=== PATIENT | male | born 1940 | race Caucasian/White ===

== ENCOUNTER 2019-12-20 15:58 | Inpatient (IN) | payer OTHER, SELFPAY ==
[2019-12-20] VITALS (10 sets, daily range): BP systolic 103–129; BP diastolic 73–107; PULSE 97–163; RESP 14–28; TEMP 36.3; O2SAT 93–97; BMI 28.8
--- NOTE | 2019-12-20 16:09 | XR_ITS ---
WS: [id number] PORTABLE CHEST HISTORY: Atrial fibrillation COMPARISON: 03/17/2018 Hyperexpanded lungs with no pneumonia. Normal vasculature. No pleural effusion or pneumothorax. Cardiac size: Mildly enlarged cardiac silhouette. Mediastinum/Aorta: Normal mediastinum. No osseous abnormality seen. XR/XR chest 1V portable [id number] IMPRESSION: 1. Chronic emphysema with no pneumonia. 2. Mild cardiomegaly.
--- NOTE | 2019-12-20 16:10 | ED_ITS ---
Entered by Kimberly Bobo, acting as scribe for Celeste Calvo MD Dec 20, 2019 15:58 HPI - Arrhythmia/Palpitations General: Chief Complaint: Arrhythmia/Palpitations Stated Complaint: high hr Time Seen by Provider: 12/20/19 16:09 Source: patient Mode of arrival: ambulatory Limitations: no limitations History of Present Illness: HPI narrative: 79 yo Male presents to ED with complaint of high heart rate. Pt states that he went to the [facility] today to get some prescriptions filled and Dr. Franz told him to come in because his heart rate was too high. Pt states that he does have a history of atrial fibrillation with RVR. Pt states that he take Carvedilol. Pt states that he also takes Xarelto. Pt states that he has never had a heart attack. Pt states that he does have a history of congestive heart failure. Pt states that he had some shortness of breath but took his lasix pill yesterday and got rid of a bunch of fluid, so his shortness of breath got better. Pt states that he has been off of his Carvedilol and other medications for 2 weeks due to running out. complaint: rapid heart beat Onset (ago): day(s) Duration: constant Context: occurred during rest Arrhythmia history: atrial fibrillation and on anti-coagulants Associated symptoms: Reports cough, pre-syncope (light headed and dizzy upon standing) and short of breath; Deny diaphoresis, nausea, syncope or vomiting Review of Systems Const: Denies: fever, chills, change in appetite, night sweats or diaphoresis Eyes: Denies: change in vision ENMT: Denies: throat pain or ear pain Card: Reports: edema (trace), lightheadedness (upon standing) and pre-syncope (light headed and dizzy upon standing); Denies: chest pain or syncope Resp: Reports: shortness of breath (improved with lasix use); Denies: productive cough GI: Denies: abdominal pain, nausea, vomiting, diarrhea or constipation : Denies: flank pain Musc: Denies: back pain Skin/Breast: Denies: rash Neuro: Denies: headache, numbness in extremities or weakness in extremities Psych: Denies: depression Endo: Denies: excessive thirst Thomas/Lymph: Denies: easy bruising PFSH ED PFSH: Statuses (acute, chronic, etc) shown below reflect problem list status as previously entered and may not be historically accurate Medical History (Updated 12/20/19 @ 16:31 by Kimberly Bobo) Atrial fibrillation with RVR COPD (chronic obstructive pulmonary disease) Diabetes Hyperlipidemia Surgical History (Updated 12/20/19 @ 16:31 by Kimberly Bobo) History of tonsillectomy Social History Smoking and tobacco status: former smoker Physical Exam Const: COMMON NORMALS: no apparent distress, oriented x3 and alert GENERAL APPEARANCE: cooperative and well developed; not in distress and not diaphoretic ORIENTATION/CONSCIOUSNESS: Yes awake, Yes oriented to person, Yes oriented to place and Yes oriented to time HENMT: COMMON NORMALS: normocephalic, head/scalp atraumatic, external ears normal, external nose normal and moist oral mucous membranes HEAD & SCALP: normocephalic and atraumatic FACE & SINUS: normal facial exam; no facial tenderness NOSE: external nose normal EXTERNAL EAR: Yes external ears normal MOUTH: oral and palatal mucosa normal, lip normal and tongue normal TEETH & GINGIVA: no abnormal tooth and associated gingiva THROAT: posterior oropharynx normal and uvula midline Eye: COMMON NORMALS: PERRL and EOMs intact bilaterally PUPIL: Yes PERRL Neck/C-Spine: COMMON NORMALS: full ROM, supple and no JVD GENERAL: Yes normal visual inspection and Yes trachea midline CERVICAL SPINE: No cervical spine tenderness Lymph: LYMPHATIC: no lymphadenopathy noted Chest: COMMONS NORMALS: inspection of chest normal Resp: COMMON NORMALS: normal respiratory effort, no use of accessory muscles and clear to auscultation bilaterally EFFORT & INSPECTION: Yes able to speak in complete sentences and Yes symmetric chest movement AUSCULTATION: clear to auscultation bilaterally Cardio: COMMON NORMALS: no JVD, regular rhythm, no gallops, no murmurs and peripheral pulses 2+ throughout; negative for regular rate RATE: abnormal rate and tachycardic RHYTHM: regular rhythm PERIPHERAL PULSES: pulses 2+ throughout GI: COMMON NORMALS: normal to inspection, nondistended, normoactive bowel sounds, soft to palpation and non-tender PALPATION: Yes soft Back/Pelvis: COMMON NORMALS: thoracic and lumbar spine normal to inspection and thoraco-lumbar ROM normal Extremity: COMMON NORMALS: normal to inspection, full ROM and normal capillary refill GENERAL: Yes edema (trace edema to bilateral lower extremities) Neuro: COMMON NORMALS: oriented x3, CN's II-XII intact bilaterally, moves all extremities, no focal motor deficits and no sensory deficits noted SENSORIUM/ORIENTATION: Yes alert, Yes oriented to person, Yes oriented to place and Yes oriented to time Psych: COMMON NORMALS: mental status grossly normal, thought process normal, cooperative, affect normal, speech normal and activity/motor behavior normal SPEECH: Yes normal speech THOUGHT PROCESS: normal thought process Skin: COMMON NORMALS: no rashes or lesions noted and skin turgor normal GENERAL SKIN EXAM: no rashes or lesions noted and turgor normal Course ED course: Patient with high HR and a fib. Unclear when that started but sounds like it may have been for a few weeks. Work up unremarkable - IV cardizem given and titrated until HR came down. He had one episode of hypotension, which was asymptomatic - and responded to IV fluids. He agreed to admission for transition to oral medications and further re-evaluation. Vital Signs: Vital signs: Vital Signs Temperature 97.3 F L 12/20/19 16:00 Pulse Rate 113 H 12/20/19 21:34 Respiratory Rate 16 12/20/19 21:34 Blood Pressure 107/87 12/20/19 21:34 Pulse Oximetry 96 12/20/19 21:34 MDM - Arrhythmia/Palpitations MDM Narrative: Medical decision making narrative: A fib with RVR. History of CHF - patient says he had been out of his meds - including lasix for 2 weeks. he took a lasix yesterday and urinate a very large amount - felt better with decreased shortness of breath after that. He does not appear to be in failure now. Lab Data: Labs: Lab Results 12/20/19 12/20/19 12/20/19 Range/Units 16:30 16:30 16:30 WBC 7.9 (4.0-10.0) 10^3/ uL RBC 4.33 (4.1-5.3) 10^6/u L Hgb 11.3 L (11.7-16.6) g/dL Hct 37.6 L (42.0-52.0) % MCV 86.8 (80-94) fL MCH 26.1 L (28.0-34.0) pg MCHC 30.1 (30.0-36.0) g/dL RDW 19.4 H (12.1-15.1) % Plt Count 210 (130-400) 10^3/c mm MPV 10.3 (7.4-10.4) fL Neut % (Auto) 58.1 % Lymph % (Auto) 26.1 % Taylor % (Auto) 13.1 % Eos % (Auto) 1.6 % Baso % (Auto) 0.8 % Neut # (Auto) 4.6 (1.8-7.7) 10^3/u L Lymph # (Auto) 2.1 (0.8-4.8) 10^3/u L Taylor # (Auto) 1.0 H (0.2-0.9) 10^3/u L Eos # (Auto) 0.1 (0.0-0.8) 10^3/u L Baso # (Auto) 0.1 (0.0-0.1) 10^3/u L Nucleated RBC % (a uto) 0 % Nucleated RBCs # 0.0 /100WBC Sodium 139 (136-145) mmol/L Potassium 4.4 (3.5-5.1) mmol/L Chloride 102 (98-107) mmol/L Carbon Dioxide 23 (22-29) mmol/L Anion Gap 18.4 (5-19) BUN 20 (8-23) mg/dL Creatinine 1.0 (0.7-1.2) mg/dL Glucose 120 H (65-115) mg/dL Calcium 9.9 (8.5-10.5) mg/dL Total Bilirubin 0.4 (0.15-1.2) mg/dL AST 20 (0-40) U/L ALT 18 (0-41) U/L Alkaline Phosphata se 65 (40-130) IU/L Troponin T Baselin e 16 H (0-15) ng/mL Troponin T 120 Min terese (0-15) ng/mL Delta Troponin T (0-10) ABS# Total Protein 7.3 (6.6-8.7) g/dL Albumin 4.8 (3.5-5.2) g/dL Globulin 2.5 (1.3-4.6) g/dL 12/20/19 Range/Units 19:18 WBC (4.0-10.0) 10^3/ uL RBC (4.1-5.3) 10^6/u L Hgb (11.7-16.6) g/dL Hct (42.0-52.0) % MCV (80-94) fL MCH (28.0-34.0) pg MCHC (30.0-36.0) g/dL RDW (12.1-15.1) % Plt Count (130-400) 10^3/c mm MPV (7.4-10.4) fL Neut % (Auto) % Lymph % (Auto) % Taylor % (Auto) % Eos % (Auto) % Baso % (Auto) % Neut # (Auto) (1.8-7.7) 10^3/u L Lymph # (Auto) (0.8-4.8) 10^3/u L Taylor # (Auto) (0.2-0.9) 10^3/u L Eos # (Auto) (0.0-0.8) 10^3/u L Baso # (Auto) (0.0-0.1) 10^3/u L Nucleated RBC % (a uto) % Nucleated RBCs # /100WBC Sodium (136-145) mmol/L Potassium (3.5-5.1) mmol/L Chloride (98-107) mmol/L Carbon Dioxide (22-29) mmol/L Anion Gap (5-19) BUN (8-23) mg/dL Creatinine (0.7-1.2) mg/dL Glucose (65-115) mg/dL Calcium (8.5-10.5) mg/dL Total Bilirubin (0.15-1.2) mg/dL AST (0-40) U/L ALT (0-41) U/L Alkaline Phosphata se (40-130) IU/L Troponin T Baselin e (0-15) ng/mL Troponin T 120 Min terese 15.93 H (0-15) ng/mL Delta Troponin T -0.07 L (0-10) ABS# Total Protein (6.6-8.7) g/dL Albumin (3.5-5.2) g/dL Globulin (1.3-4.6) g/dL Imaging Data^: CXR: Radiologist's impression: [facility] [address] [place] [address] XRay Report Signed Patient: Nahum Armstrong #: [id number] : 2Acct#:[id number] Age/Sex: 79 / MADM Date: 12/20/19 Loc: ERRoom/Bed: Attending Dr: Ordering Provider/Ordering MD: Celeste Calvo MD Date of Service: 12/20/19 Procedure(s): XR chest 1V portable [id number] Accession Number(s): [id number] Report Number: [id number] WS: [id number] PORTABLE CHEST HISTORY: Atrial fibrillation COMPARISON: 03/17/2018 Hyperexpanded lungs with no pneumonia. Normal vasculature. No pleural effusion or pneumothorax. Cardiac size: Mildly enlarged cardiac silhouette. Mediastinum/Aorta: Normal mediastinum. No osseous abnormality seen. XR/XR chest 1V portable [id number] IMPRESSION: 1. Chronic emphysema with no pneumonia. 2. Mild cardiomegaly. Dictated By:Berna Grewal DO Signed By:Berna Grewal DOSigned Date/Time:12/20/19 162 DD/ 1627 EKG Data^: EKG 1: EKG interpretation date: 12/20/19 EKG interpretation time: 16:14 Interpretation: Afib at 164, RBBB, nonspecific rate related ST changes Other EKG comments: Chest X-Ray 12/20/19 16:09 IMPRESSION: 1. Chronic emphysema with no pneumonia. 2. Mild cardiomegaly. Discharge Plan Discharge Admit Provider: Anni Bazzi Coding Level of Care Code ED Balloon Sander for Chg Fwd Exam Problem Focused The documentation recorded by the Jihan streeter Carmen, accurately reflects the service I personally performed and the decisions made by Umesh rendon Kathryn L, MD Dec 20, 2019 15:58
--- NOTE | 2019-12-20 16:10 | ECG_ITS ---
Measurements Intervals [place] Rate: 164 P: NM: 0 QRS: 25 QRSD: 98 T: 77 QT: 261 QTc: 432 ATRIAL FIBRILLATION WITH RAPID VENTRICULAR RESPONSE INCOMPLETE RIGHT BUNDLE BRANCH BLOCK [90+ ms QRS DURATION, TERMINAL R IN V1/V2, + ms S IN I/aVL/V4/V5/V6] NONSPECIFIC ST & T-WAVE ABNORMALITY ABNORMAL RHYTHM ECG Compared to ECG 03/17/2018 16:46:17 Possible ischemia no longer present T-wave abnormality still present Electronically Signed On 12-20-2019 20:56:35 [employer]OPER by Deon Singh M.D. [email or web address]
[2019-12-20] MEDS: sodium chloride 0.9% 500 ML 999 ML IV (16:35)
[2019-12-20 16:44] LABS: Basophils # 0.1 10^3/uL (0.0-0.1); Basophils % 0.8 %; Eosinophils # 0.1 10^3/uL (0.0-0.8); Eosinophils % 1.6 %; Hematocrit 37.6 % (42.0-52.0); Hemoglobin 11.3 g/dL (11.7-16.6); Lymphocytes # 2.1 10^3/uL (0.8-4.8); Lymphocytes % 26.1 %; Mean Corpuscular HGB Conc 30.1 g/dL (30.0-36.0); Mean Corpuscular Hemoglobin 26.1 pg (28.0-34.0); Mean Corpuscular Volume 86.8 fL (80-94); Mean Platelet Volume 10.3 fL (7.4-10.4); Monocytes % 13.1 %; Neutrophils # 4.6 10^3/uL (1.8-7.7); Neutrophils % 58.1 %; Nucleated Red Blood Cells % 0 %; Platelet Count 210 10^3/cmm (130-400); Red Blood Count 4.33 10^6/uL (4.1-5.3); Red Cell Distribution Width 19.4 % (12.1-15.1); White Blood Count 7.9 10^3/uL (4.0-10.0)
[2019-12-20 16:59] LABS: Troponin(5th) Baseline 16 ng/mL (0-15)
[2019-12-20 17:01] LABS: Alanine Aminotransferase 18 U/L (0-41); Albumin Level 4.8 g/dL (3.5-5.2); Alkaline Phosphatase 65 IU/L (40-130); Anion Gap 18.4 (5-19); Aspartate Amino Transferase 20 U/L (0-40); Blood Urea Nitrogen 20 mg/dL (8-23); Calcium 9.9 mg/dL (8.5-10.5); Carbon Dioxide 23 mmol/L (22-29); Chloride 102 mmol/L (98-107); Globulin 2.5 g/dL (1.3-4.6); Glucose 120 mg/dL (65-115); Potassium 4.4 mmol/L (3.5-5.1); Sodium 139 mmol/L (136-145); Total Bilirubin 0.4 mg/dL (0.15-1.2); Total Protein 7.3 g/dL (6.6-8.7)
--- NOTE | 2019-12-20 18:10 | ECG_ITS ---
Measurements Intervals [place] Rate: 123 P: NC: 0 QRS: 22 QRSD: 102 T: 66 QT: 332 QTc: 476 ATRIAL FIBRILLATION WITH RAPID VENTRICULAR RESPONSE INCOMPLETE RIGHT BUNDLE BRANCH BLOCK [90+ ms QRS DURATION, TERMINAL R IN V1/V2, 40+ ms S IN I/aVL/V4/V5/V6] NONSPECIFIC T-WAVE ABNORMALITY ABNORMAL RHYTHM ECG Compared to ECG 03/17/2018 16:46:17 Possible ischemia no longer present T-wave abnormality still present Electronically Signed On 12-20-2019 21:01:26 SUPERVISOR [employer]OR [employer]SEM[employer] by Deon Singh M.D. [id number]
[2019-12-20] MEDS: sodium chloride 0.9% 1,000 ML 999 ML IV (19:27)
[2019-12-20 19:37] LABS: Troponin 5 2HR 15.93 ng/mL (0-15)
[2019-12-20 19:38] LABS: Troponin 5 2HR Delta -0.07 ABS# (0-10)
--- NOTE | 2019-12-20 19:50 | PC.NURSE ---
Assessment was not completed by dayshift nurse, oncoming night nurse completed assessment after shift change.
--- NOTE | 2019-12-20 20:12 | PC.NURSE ---
pt would like food.
--- NOTE | 2019-12-20 20:38 | PC.NURSE ---
Called pharmacy for medications not in pyxis for patient.
[2019-12-20] MEDS: carvedilol 6.25 mg Tablet PO (20:48)
[2019-12-20] MEDS: dilTIAZem 30 mg Tablet PO (20:48)
--- NOTE | 2019-12-20 21:50 | PC.NURSE ---
PATIENT MOVED TO NEW ROOM, NURSE WAITING FOR NEW ROOM NUMBER TO CALL REPORT AGAIN FOR [facility]
--- NOTE | 2019-12-20 22:10 | ECG_ITS ---
Measurements Intervals [place] Rate: 103 P: [place]: 0 QRS: 22 QRSD: 110 T: 70 QT: 365 QTc: 478 ATRIAL FIBRILLATION WITH RAPID VENTRICULAR RESPONSE INCOMPLETE RIGHT BUNDLE BRANCH BLOCK [90+ ms QRS DURATION, TERMINAL R IN V1/V2, 40+ ms S IN I/aVL/V4/V5/V6] NONSPECIFIC T-WAVE ABNORMALITY ABNORMAL RHYTHM ECG Compared to ECG 12/20/2019 18:02:18 No significant changes Electronically Signed On 12-21-2019 20:42:04 FREIGHT RATE SPECIALIST by Ar Ferguson M.D. [email or web address]
--- NOTE | 2019-12-20 22:20 | PC.NURSE ---
EKG done at 2215 and shown to ER doctor
[2019-12-20 22:59] LABS: Troponin 5 6HR 16.98 ng/L (0-15); Troponin 5 6HR Delta 0.98 ng/L (0-12)
--- NOTE | 2019-12-20 23:06 | PC.NURSE ---
HOSPITALIST IN ROOM WITH PATIENT AT THIS TIME
--- NOTE | 2019-12-20 23:10 | P.HP_ITS ---
Providers/Chief Complaint Admitting Physician: Anni Bazzi MD Primary Care Provider: Narciso Franz Chief Complaint: high hr History of Present Illness Nahum Armstrong is a 79 year old male who presented to the emergency room with chief complaint of elevated heart rate. He originally was seen at the [place] [facility] by Dr. Stock. He had run out of his carvedilol, Lasix and benazepril about 2 weeks ago. He has a co-pay with his medications and was simply not able to afford them. To get his benazepril refilled he had to be seen by the doctor again and that is what his appointment today was about. When he was there he was found to have A. fib with RVR and was sent to the emergency room. On arrival here heart rate was in the 160s. He was given some Cardizem and started on a Cardizem drip After a couple of hours with his drip up to 10, his heart rate finally improved to around 100 bpm. He was given some oral some oral Cardizem and an oral carvedilol and able to come off of the drip. He reports increasing shortness of breath, lower extremity edema, nonproductive cough, increasing orthopnea lately. He has noticed that his heart was beating fast but was not really concerned by it. No syncopal episodes or presyncope symptoms otherwise. No reports of chest pain. He has a nonischemic cardiomyopathy with ejection fraction at 25 to 30% on last echocardiogram done here in 2018. He had an arteriogram in 2008 that did not show any flow-limiting obstructions. He himself feels that being without his benazepril and Lasix were probably the biggest problem. He did find a Lasix pill a couple of days ago and had significant urine output and had started to feel better at that point in time. With the significant atrial fibrillation with rapid ventricular response that was not apparent to the patient at presentation and required initiation of IV continuous treatment for rate control, combined with increasing shortness of breath, both related to being out of his medications Lately, he is being admitted to observation status to ensure continued control of cardiac issues and to facilitate arrangement of home medications. Review of Systems Const: Denies: fever or chills Eyes: Denies: change in vision ENMT: Denies: throat pain, oral sores/lesions or nasal congestion Card: Reports: irregular heart rhythm, edema, shortness of breath on exertion and shortness of breath when lying down; Denies: chest pain, lightheadedness, syncope or pre-syncope Resp: Reports: shortness of breath and non-productive cough GI: Denies: abdominal pain, nausea, vomiting, difficulty swallowing, diarrhea, constipation or blood in stool : Reports: urinary hesitancy; Denies: urinary frequency Musc: Reports: extremity pain (Sometimes. No calf pain.); Denies: joint swelling, redness or joint warmth Skin/Breast: Denies: rash or sores Neuro: Reports: other (Walks a little crooked but not new); Denies: headache or numbness in extremities Psych: Reports: anxiety and other (Emotional at times) Endo: Denies: excessive sweating Thomas/Lymph: Denies: easy bruising or easy bleeding Medications/Allergies Home Medications Medication Instructions Recorded Confirmed Last Taken Type alogliptin 25 mg PO DAILY 12/20/19 12/20/19 12/20/19 History aspirin 325 mg PO DAILY 12/20/19 12/20/19 12/20/19 History benazepril 5 mg PO DAILY 12/20/19 12/20/19 Unknown History carvedilol 12.5 mg PO BID 12/20/19 12/20/19 Unknown History furosemide 40 mg PO DAILY 12/20/19 12/20/19 Unknown History metformin 500 mg PO BID 12/20/19 12/20/19 12/20/19 08:00 History potassium chloride 10 meq PO BID 12/20/19 12/20/19 12/20/19 08:00 History rivaroxaban [Xarelto] 20 mg PO DAILY 12/20/19 12/20/19 12/19/19 History Allergies Allergy/AdvReac Type Severity Reaction Status Date / Time No Known Allergies Allergy Verified 12/20/19 16:05 PFSH Acute PFSH: Statuses (acute, chronic, etc) shown below reflect problem list status as previously entered and may not be historically accurate Medical History (Updated 12/20/19 @ 23:39 by Anni Bazzi MD) Chronic atrial fibrillation Coreg COPD (chronic obstructive pulmonary disease) Diabetes mellitus, type II Hyperlipidemia Hypertension Non-ischemic cardiomyopathy EF 25-30% 2018, on ACEI Surgical History (Updated 02/12/20 @ 16:31 by Kimberly Bobo) History of tonsillectomy Family History (Updated 12/20/19 @ 23:31 by Anni Bazzi MD) Other CAD (coronary artery disease) CHF (congestive heart failure) Cancer Social History (Updated 12/20/19 @ 23:31 by Anni Bazzi MD) Smoking and tobacco status: former smoker Household members: spouse and children Marital status: Vitals/I&O/Wt Last Vital Signs Temp 97.3 F L 12/20/19 16:00 Pulse 114 H 12/20/19 22:47 Resp 16 12/20/19 22:47 BP 104/82 12/20/19 22:47 Pulse Ox 95 12/20/19 22:47 12/20/19 12/20/19 12/21/19 14:59 22:59 06:59 Intake Total 1534.750 / 1534.750 Balance 1534.750 / 1534.750 Weight last 48 hrs Weight 98.883 kg Physical Exam Const: COMMON NORMALS: oriented x3 and alert HENMT: COMMON NORMALS: normocephalic and head/scalp atraumatic Eye: COMMON NORMALS: PERRL and EOMs intact bilaterally Neck/C-Spine: COMMON NORMALS: supple Resp: COMMON NORMALS: normal respiratory effort and no use of accessory m uscles AUSCULTATION: clear to auscultation bilaterally, no rales, no rhonchi, no wheezes and diminished lung sounds bilateral in the lower lung carreon Cardio: COMMON NORMALS: no gallops, no murmurs and no rub RHYTHM: abnormal rhythm irregularly irregular GI: COMMON NORMALS: normal to inspection, nondistended, normoactive bowel sounds, soft to palpation and non-tender Back/Pelvis: COMMON NORMALS: no CVA tenderness Extremity: GENERAL: Yes edema (2+) Neuro: COMMON NORMALS: oriented x3, moves all extremities and no sensory deficits noted Psych: COMMON NORMALS: thought process normal and cooperative APPEARANCE: Yes grossly normal ACTIVITY/MOTOR BEHAVIOR: Yes appropriate eye contact MOOD & AFFECT: Yes other (reflective, emotion/gratitude) Skin: COMMON NORMALS: no mottling NARRATIVE SKIN EXAM: Chronic skin changes to lower extremities no acute findings Data : 12/20/19 16:30 12/21/19 04:45 Other Labs: Laboratory Tests 12/20/19 12/20/19 19:18 22:33 Troponin I Hi Sens Del 0.98 Delta Troponin T -0.07 L Liver Function 12/20/19 Range/Units 16:30 Total Bilirubin 0.4 (0.15-1.2) mg/dL AST 20 (0-40) U/L ALT 18 (0-41) U/L Alkaline Phosphatase 65 (40-130) IU/L Albumin 4.8 (3.5-5.2) g/dL A&P Assessment and plan (1) Atrial fibrillation with RVR: In a patient with long history of atrial fibrillation. He had been out of his carvedilol for 2 weeks. He responded to some diltiazem IV in the emergency room but was fortunately able to be changed over to oral medications after a short period of time. Status: Acute Code(s): I48.91 - Unspecified atrial fibrillation (2) Non-ischemic cardiomyopathy: With acute on chronic systolic chf secondary to being out of medications and afib with rvr Status: Acute Code(s): I42.8 - Other cardiomyopathies (3) Diabetes mellitus, type II: Chronically on alogliptin Status: Acute Qualifiers: Diabetes mellitus complication status: without complication Diabetes mellitus intermediate project manager insulin use: without intermediate project manager use Qualified Code(s): E11.9 - Type 2 diabetes mellitus without complications Code(s): E11.9 - Type 2 diabetes mellitus without complications (4) Chronic anticoagulation: On xarelto Status: Acute Code(s): Z79.01 - retirement (current) use of anticoagulants (5) COPD (chronic obstructive pulmonary disease): Does not appear acutely exacerbated presently Status: Acute Qualifiers: COPD type: emphysema Emphysema type: panlobular Qualified Code(s): J43.1 - Panlobular emphysema Code(s): J44.9 - Chronic obstructive pulmonary disease, unspecified Additional A&P Information Observation admission Resume carvedilol While patient may be cognizant that his heart rate is elevated at times he is not very symptomatic acutely from A. fib with RVR 1 dose of IV diuresis followed by resumption of usual home oral Lasix Continue lisinopril Monitor serial cardiac enzymes Continue home Xarelto creative services producer to see patient given difficulty paying for medications. Assuming his rate maintains control and he has no other acute issues overnight anticipate probable discharge tomorrow, with outpatient follow-up to his PCP Plans were discussed with patient who was in agreement. He was given an opportunity to ask questions Full code Attestations Medical Necessity Statement*: Anticipate stay less than 2 midnights in patient who was not able to afford medications and presented in afib with rvr and acute on chronic systolic chf secondary to nonisvhemic cardiomyopathy. Coding Level of Care Code Acute Front Office Representative for g Fwd Exam Problem Focused Diagnoses Atrial fibrillation with RVR I48.91 Non-ischemic cardiomyopathy I42.8 Diabetes mellitus, type II E11.9 Diabetes mellitus complication status: without complication Diabetes mellitus intermediate project manager insulin use: without intermediate project manager use Chronic anticoagulation Z79.01 COPD (chronic obstructive pulmonary disease) J43.1 COPD type: emphysema Emphysema type: panlobular
[2019-12-21] VITALS (8 sets, daily range): BP systolic 103–145; BP diastolic 72–95; PULSE 94–119; RESP 18–24; TEMP 36.3–36.7; O2SAT 95–99
[2019-12-21 05:46] LABS: Anion Gap 15.2 (5-19); Blood Urea Nitrogen 18 mg/dL (8-23); Calcium 9.5 mg/dL (8.5-10.5); Carbon Dioxide 24 mmol/L (22-29); Chloride 106 mmol/L (98-107); Glucose 105 mg/dL (65-115); Osmolality Calculated 289 mOsm/kg (285-295); Potassium 4.2 mmol/L (3.5-5.1); Sodium 141 mmol/L (136-145)
[2019-12-21] MEDS: carvedilol 12.5 mg Tablet PO ×2 (07:20→17:22)
[2019-12-21] MEDS: rivaroxaban 10 mg Tablet 20 MG PO (07:21)
[2019-12-21] MEDS: FUROsemide 10 mg/mL SDV 4mL 40 MG IVP (07:21)
[2019-12-21] MEDS: dilTIAZem 30 mg Tablet PO (07:22)
[2019-12-21] MEDS: lisinopril 5 mg Tablet PO (07:22)
[2019-12-21] MEDS: metformin 500 mg Tablet PO ×2 (07:22→17:22)
--- NOTE | 2019-12-21 07:36 | PC.NURSE ---
Patient heart rate reaching 150s-160s. Physician notified and morning medications administered. Nurse to continue to monitor.
--- NOTE | 2019-12-21 08:54 | P.PN_ITS ---
Subjective Subjective: Interval history: Chart reviewed, HR increasing this AM. Heart rate improved after dose of metoprolol and oral dose of Cardizem. Has remained in the 90s to 110 range for most of the day. Patient states that he has some shortness of breath with exertion but is otherwise asymptomatic. Medications: Reviewed: Yes Medication Review Details: Current Medications Generic Name Dose Route Start Last Admin Trade Name Freq PRN Reason Stop Dose Admin Carvedilol 12.5 mg 12/21/19 06:15 12/21/19 07:20 Coreg PO 12.5 mg Q12H LOY Administration Diltiazem HCl 30 mg 12/21/19 06:14 12/21/19 07:22 Cardizem PO 30 mg Q6H PRN Administration heart rate > 120 Lisinopril 5 mg 12/21/19 09:00 12/21/19 07:22 Prinivil PO 5 mg DAILY LOY Administration Metformin HCl 500 mg 12/21/19 09:00 12/21/19 07:22 Glucophage PO 500 mg BID LOY Administration Potassium Chloride 10 meq 12/21/19 09:00 12/21/19 07:21 Klor-Con 10 PO 10 meq BID LOY Administration Vitals/I&O/Wt Last Vital Signs Temp 97.4 F L 12/21/19 07:46 Pulse 110 H 12/21/19 07:46 Resp 20 H 12/21/19 07:46 BP 137/93 12/21/19 07:46 Pulse Ox 95 12/21/19 07:46 12/20/19 12/21/19 12/21/19 22:59 06:59 14:59 Intake Total 1534.750 / 1534.750 210 / 1744.750 Balance 1534.750 / 1534.750 210 / 1744.750 Weight last 48 hrs Weight 91.49 kg Weight 98.883 kg Physical Exam Const: COMMON NORMALS: no apparent distress and oriented x3 GENERAL APPEARANCE: cooperative and comfortable ORIENTATION/CONSCIOUSNESS: Yes awake HENMT: COMMON NORMALS: normocephalic, head/scalp atraumatic, hearing grossly normal bilaterally and moist oral mucous membranes HEAD & SCALP: normocephalic and atraumatic Eye: COMMON NORMALS: PERRL, EOMs intact bilaterally and conjunctivae normal CONJUNCTIVA: Yes conjunctivae normal PUPIL: Yes PERRL Neck/C-Spine: COMMON NORMALS: full ROM GENERAL: Yes normal visual inspection and Yes trachea midline Resp: COMMON NORMALS: normal respiratory effort, no retractions, no use of accessory muscles and clear to auscultation bilaterally EFFORT & INSPECTION: Yes able to speak in complete sentences, Yes symmetric chest movement and No tachypneic AUSCULTATION: clear to auscultation bilaterally Cardio: COMMON NORMALS: S1 normal heart sound, S2 normal heart sound and no murmurs RATE: tachycardic RHYTHM: abnormal rhythm irregularly irregular HEART SOUNDS: S1 normal and S2 normal GI: COMMON NORMALS: normal to inspection, nondistended, normoactive bowel sounds, soft to palpation and non-tender PALPATION: Yes soft Extremity: COMMON NORMALS: normal to inspection, full ROM and no clubbing, cyanosis or edema; negative for no pedal edema Neuro: COMMON NORMALS: oriented x3, moves all extremities, no focal motor deficits, no sensory deficits noted and gait normal Psych: COMMON NORMALS: mental status grossly normal, thought process normal, cooperative, affect normal and speech normal SPEECH: Yes normal speech THOUGHT PROCESS: normal thought process Skin: COMMON NORMALS: no rashes or lesions noted, no jaundice, no petechiae and no mottling GENERAL SKIN EXAM: no rashes or lesions noted Data : 12/20/19 16:30 12/21/19 04:45 A&P Assessment and plan (1) Atrial fibrillation with RVR: -presented with atrial fibrillation with RVR, likely due to running out of home medications -Required Cardizem drip for a brief period of time in the ER; weaned off after initiation of oral Cardizem and dose of Coreg -Telemetry monitoring -Continue oral Cardizem and Coreg, titrate as needed for optimal response; add metoprolol as needed -On anticoagulation with Xarelto -Vital signs otherwise stable, continue to monitor Status: Acute Code(s): I48.91 - Unspecified atrial fibrillation Additional A&P Information -HTN; continue oral antihypertensives -hx of non-ischemic cardiomyopathy; Echo (2018): EF=25-30% -Hyperlipidemia -NIDDM type II -COPD, not oxygen dependent at baseline, no acute exacerbation -continue meds as ordered -cardiac diabetic diet as tolerated -no need for DVT ppx as on Xarelto -Dispo: home -Code status: FULL code -Switch to inpatient due to need for continued telemetry monitoring and appropriate heart rate control Attestations Medical Necessity Statement*: Patient requires hospitalization for continued telemetry monitoring and management of A. fib with RVR pending consistent heart rate control. Time Spent in Patient Care: Greater than 35 minutes (>than 50% of time spent in counselling and/or direct pt care on unit) . Coding Level of Care Code Acute Construction Checker for Ortiz García Exam Problem Focused Diagnoses Atrial fibrillation with RVR I48.91
[2019-12-21] MEDS: metoprolol tartrate 1 mg/1 mL SDV 5 mL 5 MG IV (09:12)
--- NOTE | 2019-12-21 10:00 | ECG_ITS ---
Measurements Intervals [place] Rate: 139 P: ND: 0 QRS: -35 QRSD: 104 T: 72 QT: 302 QTc: 460 ATRIAL FIBRILLATION WITH RAPID VENTRICULAR RESPONSE MARKED LEFT AXIS DEVIATION [QRS AXIS < -30] MODERATE ST DEPRESSION [0.05+ mV ST DEPRESSION] Compared to ECG 12/20/2019 18:02:18 Left-axis deviation now present ST (T wave) deviation now present Incomplete right bundle-branch block no longer present T-wave abnormality no longer present Electronically Signed On 12-21-2019 20:42:17 SOFTWARE SALES REPRESENTATIVE by Ar Ferguson M.D. [email or web address]
--- NOTE | 2019-12-21 12:49 | PC.CHAP ---
Pastoral Care Encounter/Spiritual Assessment Type of Contact [] Declined explosive man visit [] Patient/Family/Request visit [] Outpatient visit [] Follow-up visit [] Physician referral [] Code/Alert [x] Routine visit [] Staff referral [] Actively dying [] Patient sleeping [] Family support [] [] Out of room [] Palliative care [] [] Receiving care in room [] Pre-surgical visit [] Trauma [] Long length of stay [] ICU visit [] Other: Relational/Emotional Strength [x] Patient feels connected with others/family/visitors/staff [] Distress [] Loneliness/isolation [] Abandonment Spirituality of Patient [] Person of Georgina [] Attends Congregational of their Georgina [x] Believes in Prayer [] Reads Bible or Alevism materials [x] There are Spiritual issues to be addressed Television Journalist Interventions [x] Prayer [x] Active listening [x] Non-anxious presence [x] Spiritual/emotional support [] Crisis/trauma care [x] Spiritual counseling [] Bereavement support [] Provided bereavement packet [] Provided Bible/devotional materials [] Provided toy/stuffed animal, coloring book to patient or family member [] Provided Communion [] Anointing/[place] [] Salvation [] Completed spiritual assessment [] Other: Impact on Illness or Injury [] Angry [] Fearful [] Anxious [] Often cries [] Exhaustion [] Unable to work [] Unable to attend faith [] Unable to walk/stand [] Unable to read [] Unable to drive [] Unable to eat/drink [] Unable to sleep [] Unable to be with family [] Patient intubated [x] Other: Summary Patient expressed that his stay in the hospital is related to an inability to afford his medication. Time spent with patient 10 minutes
[2019-12-22] VITALS (10 sets, daily range): BP systolic 106–122; BP diastolic 68–80; PULSE 65–117; RESP 16–18; TEMP 36.1–36.8; O2SAT 94–99
[2019-12-22] MEDS: dilTIAZem 30 mg Tablet PO (03:50)
--- NOTE | 2019-12-22 03:53 | PC.NURSE ---
pt heart rate 120-130 while resting in bed, up to 150 s while up to cammode. Complaints of feeling little anxious/sob while he was up to cammode. Given prn cardizem at this time.
[2019-12-22] MEDS: carvedilol 12.5 mg Tablet PO ×2 (05:43→17:55)
[2019-12-22] MEDS: rivaroxaban 10 mg Tablet 20 MG PO (08:08)
[2019-12-22] MEDS: lisinopril 5 mg Tablet PO (08:08)
[2019-12-22] MEDS: FUROsemide 40 mg Tablet PO (08:08)
[2019-12-22] MEDS: metformin 500 mg Tablet PO ×2 (08:08→17:55)
--- NOTE | 2019-12-22 10:01 | P.DS_ITS ---
Discharge Providers Date of Admission: 12/21/19 16:25 Date of Discharge: December 22, 2019 Attending Provider at Admission: Anni Bazzi MD Attending Provider at Discharge: Adrienne Britton MD Primary Care Provider: Narciso Franz Diagnoses at Discharge Discharge Diagnosis (1) Atrial fibrillation with RVR: Status: Acute Problem details: Other Information Additional DC diagnoses/information: -HTN; continue oral antihypertensives -hx of non-ischemic cardiomyopathy; Echo (2018): EF=25-30% -Hyperlipidemia -NIDDM type II -COPD, not oxygen dependent at baseline, no acute exacerbation Reason for Visit Reason for Visit: Reason For Visit: high hr Hospital Course Hospital Course: Patient was admitted to the medical surgical floor and placed on telemetry monitoring. His home dose of Coreg was resumed in addition to metoprolol and Cardizem as needed for appropriate heart rate control. He continued to have episodes of A. fib with RVR with reported shortness of breath though his heart rate is much better controlled today, his rhythm remains irregular. His anticoagulation was continued with Xarelto. He has otherwise been hemodynamically stable, tolerating oral intake without difficulty, ambulatory. This episode of A. fib with RVR was likely triggered by the fact that he ran out of his medications a few days prior to presentation. Discharge was delayed by 1 day to allow for optimization of medication and appropriate heart rate control. He seems to be more responsive to metoprolol so has been switched from Coreg to metoprolol with addition of digoxin to maintain heart rate control. Discharge Summary: -Patient to follow-up with his primary care physician félix mullins 1 week. He will need monitoring of digoxin levels. Physical Exam Const: COMMON NORMALS: no apparent distress and oriented x3 GENERAL APPEARANCE: cooperative and comfortable ORIENTATION/CONSCIOUSNESS: Yes awake HENMT: COMMON NORMALS: normocephalic, head/scalp atraumatic, hearing grossly normal bilaterally and moist oral mucous membranes HEAD & SCALP: normocephalic and atraumatic Eye: COMMON NORMALS: PERRL, EOMs intact bilaterally and conjunctivae normal CONJUNCTIVA: Yes conjunctivae normal PUPIL: Yes PERRL Neck/C-Spine: COMMON NORMALS: full ROM GENERAL: Yes normal visual inspection and Yes trachea midline Resp: COMMON NORMALS: normal respiratory effort, no retractions, no use of accessory muscles and clear to auscultation bilaterally EFFORT & INSPECTION: Yes able to speak in complete sentences, Yes symmetric chest movement and No tachypneic AUSCULTATION: clear to auscultation bilaterally Cardio: COMMON NORMALS: regular rate, S1 normal heart sound, S2 normal heart sound and no murmurs RATE: regular rate RHYTHM: abnormal rhythm irregularly irregular HEART SOUNDS: S1 normal and S2 normal GI: COMMON NORMALS: normal to inspection, nondistended, normoactive bowel sounds, soft to palpation and non-tender PALPATION: Yes soft Extremity: COMMON NORMALS: normal to inspection, full ROM and no clubbing, cyanosis or edema; negative for no pedal edema Neuro: COMMON NORMALS: oriented x3, moves all extremities, no focal motor deficits, no sensory deficits noted and gait normal Psych: COMMON NORMALS: mental status grossly normal, thought process normal, cooperative, affect normal and speech normal SPEECH: Yes normal speech THOUGHT PROCESS: normal thought process Skin: COMMON NORMALS: no rashes or lesions noted, no jaundice, no petechiae and no mottling GENERAL SKIN EXAM: no rashes or lesions noted Discharge Data Data Completed and Pending: Completed Studies During Hospitalization Category Date Time Status XR chest 1V kamla ble [id number] Stat Exams 12/20/19 16:09 Completed Vitals: Last Vital Signs Temp 96.9 F L 12/22/19 08:00 Pulse 100 12/22/19 08:00 Resp 18 12/22/19 08:00 BP 118/72 12/22/19 08:00 Pulse Ox 99 12/22/19 08:00 Discharge Plan Discharge Patient Disposition: Home, Self-Care Condition: Stable Prescriptions: New metoprolol tartrate 25 mg tablet 25 mg PO BID 30 Days Qty: 60 RF: 0 digoxin 125 mcg (0.125 mg) tablet 125 mcg PO DAILY 30 Days Qty: 30 RF: 0 Continued furosemide 40 mg Tablet 40 mg PO DAILY 30 Days Qty: 30 RF: 0 metformin 500 mg Tablet 500 mg PO BID 30 Days Qty: 60 RF: 0 aspirin 325 mg Tablet 325 mg PO DAILY 30 Days Qty: 30 RF: 0 potassium chloride 10 mEq Tablet Extended Release 10 meq PO BID 30 Days Qty: 60 RF: 0 benazepril 10 mg Tablet 5 mg PO DAILY 30 Days Qty: 30 RF: 0 Xarelto 20 mg Tablet 20 mg PO DAILY 30 Days Qty: 30 RF: 0 alogliptin 25 mg Tablet 25 mg PO DAILY 30 Days Qty: 30 RF: 0 Discontinued carvedilol 12.5 mg Tablet 12.5 mg PO BID RF: 0 Discharge Orders: Discharge Order (Routine); Ordered 12/23/19 Ordered By: Adrienne rBitton Referrals: Narciso Franz [Primary Care Provider] - 1-3 days (post-hospital follow up; will need digoxin levels monitored) Discharge Diet: Diabetic Discharge Activity: Resume usual activity Discharge Attestations Time Spent in Discharge Care*: greater than 30 min Specific Discharge Activities: Specific discharge activities: educating patient, discussing with classification case manager/social workers/dc planners, documenting/other paperwork and evaluating patient/reviewing data Status at Discharge: Cognitive status at discharge: cognitively intact , Behavioral status at discharge: cooperative , Functional status at discharge: independent ambulation Overall status at discharge: patient is back to baseline Quality Metrics Clinical Quality Measures During this hospital stay, did patient experience: None Coding Level of Care Code Acute Post Acute Care Nurse Practitioner for Ortiz Fwgabriel Exam Problem Focused Diagnoses Atrial fibrillation with RVR I48.91
[2019-12-22] MEDS: digoxin 125 mcg Tablet PO ×3 (11:15→22:52)
--- NOTE | 2019-12-22 16:18 | PC.CHAP ---
Pastoral Care Encounter/Spiritual Assessment Type of Contact [x] Declined health unit coordinator visit [] Patient/Family/Request visit [] Outpatient visit [] Follow-up visit [] Physician referral [] Code/Alert [] Routine visit [] Staff referral [] Actively dying [] Patient sleeping [] Family support [] [] Out of room [] Palliative care [] [] Receiving care in room [] Pre-surgical visit [] Trauma [] Long length of stay [] ICU visit [] Other: Relational/Emotional Strength [] Patient feels connected with others/family/visitors/staff [] Distress [] Loneliness/isolation [] Abandonment Spirituality of Patient [] Person of Georgina [] Attends Confucianist of their Georgina [] Believes in Prayer [] Reads Bible or Amish materials [] There are Spiritual issues to be addressed Film Masker Interventions [] Prayer [] Active listening [] Non-anxious presence [] Spiritual/emotional support [] Crisis/trauma care [] Spiritual counseling [] Bereavement support [] Provided bereavement packet [] Provided Bible/devotional materials [] Provided toy/stuffed animal, coloring book to patient or family member [] Provided Communion [] Anointing/[place] [] Salvation [] Completed spiritual assessment [] Other: Impact on Illness or Injury [] Angry [] Fearful [] Anxious [] Often cries [] Exhaustion [] Unable to work [] Unable to attend anabaptism [] Unable to walk/stand [] Unable to read [] Unable to drive [] Unable to eat/drink [] Unable to sleep [] Unable to be with family [] Patient intubated [] Other: Summary Declined health unit coordinator visit Time spent with patient
--- NOTE | 2019-12-22 18:41 | PM.PN ---
Subjective Subjective: Interval history: Patient seen and examined, seems to be doing better today, I have reviewed his telemetry throughout the day, he is gradually trying to slow down but still has spikes of his heart rate in the 120s. Rate remained controlled when he got up and ambulated earlier today. Due to inconsistent heart rate control added digoxin. Patient states that he has been on digoxin before but this was discontinued several years ago by 1 of his physicians. As far as he remembers it was tolerated well. Vital signs have otherwise been stable. Medications: Reviewed: Yes Medication Review Details: Current Medications Generic Name Dose Route Start Last Admin Trade Name Freq PRN Reason Stop Dose Admin Carvedilol 12.5 mg 12/21/19 06:15 12/22/19 17:55 Coreg PO 12.5 mg Q12H LOY Administration Digoxin 125 mcg 12/22/19 17:15 12/22/19 16:49 Lanoxin PO 12/25/19 05:16 125 mcg Q6H LOY Administration Diltiazem HCl 30 mg 12/21/19 06:14 12/22/19 03:50 Cardizem PO 30 mg Q6H PRN Administration heart rate > 120 Furosemide 40 mg 12/22/19 09:00 12/22/19 08:08 Lasix PO 40 mg DAILY LOY Administration Lisinopril 5 mg 12/21/19 09:00 12/22/19 08:08 Prinivil PO 5 mg DAILY LOY Administration Metformin HCl 500 mg 12/21/19 09:00 12/22/19 17:55 Glucophage PO 500 mg BID LOY Administration Metoprolol Tartrat e 5 mg 12/21/19 08:51 12/21/19 09:12 Metoprolol Tartr ate IV 5 mg Q4H PRN Administration HEART RATE-HIGH Potassium Chloride 10 meq 12/21/19 09:00 12/22/19 17:55 Klor-Con 10 PO 10 meq BID LOY Administration Vitals/I&O/Wt Last Vital Signs Temp 97.7 F 12/22/19 12:14 Pulse 97 12/22/19 16:54 Resp 16 12/22/19 12:14 BP 122/80 12/22/19 12:14 Pulse Ox 98 12/22/19 12:14 12/22/19 12/22/19 12/22/19 06:59 14:59 22:59 Intake Total 240 / 1500 1200 / 1200 240 / 1440 Balance 240 / 1300 1200 / 1200 240 / 1440 Weight last 48 hrs Weight 97.477 kg Weight 91.49 kg Physical Exam Const: COMMON NORMALS: no apparent distress and oriented x3 GENERAL APPEARANCE: cooperative and comfortable ORIENTATION/CONSCIOUSNESS: Yes awake HENMT: COMMON NORMALS: normocephalic, head/scalp atraumatic, hearing grossly normal bilaterally and moist oral mucous membranes HEAD & SCALP: normocephalic and atraumatic Eye: COMMON NORMALS: PERRL, EOMs intact bilaterally and conjunctivae normal CONJUNCTIVA: Yes conjunctivae normal PUPIL: Yes PERRL Neck/C-Spine: COMMON NORMALS: full ROM GENERAL: Yes normal visual inspection and Yes trachea midline Resp: COMMON NORMALS: normal respiratory effort, no retractions, no use of accessory muscles and clear to auscultation bilaterally EFFORT & INSPECTION: Yes able to speak in complete sentences, Yes symmetric chest movement and No tachypneic AUSCULTATION: clear to auscultation bilaterally Cardio: COMMON NORMALS: S1 normal heart sound, S2 normal heart sound and no murmurs RATE: tachycardic RHYTHM: abnormal rhythm irregularly irregular HEART SOUNDS: S1 normal and S2 normal GI: COMMON NORMALS: normal to inspection, nondistended, normoactive bowel sounds, soft to palpation and non-tender PALPATION: Yes soft Extremity: COMMON NORMALS: normal to inspection, full ROM and no clubbing, cyanosis or edema; negative for no pedal edema Neuro: COMMON NORMALS: oriented x3, moves all extremities, no focal motor deficits, no sensory deficits noted and gait normal Psych: COMMON NORMALS: mental status grossly normal, thought process normal, cooperative, affect normal and speech normal SPEECH: Yes normal speech THOUGHT PROCESS: normal thought process Skin: COMMON NORMALS: no rashes or lesions noted, no jaundice, no petechiae and no mottling GENERAL SKIN EXAM: no rashes or lesions noted Data : 12/20/19 16:30 12/21/19 04:45 A&P Assessment and plan (1) Atrial fibrillation with RVR: -presented with atrial fibrillation with RVR, likely due to running out of home medications -Required Cardizem drip for a brief period of time in the ER; weaned off after initiation of oral Cardizem and dose of Coreg -Telemetry monitoring -Continue oral Cardizem and Coreg, titrate as needed for optimal response; add metoprolol as needed; will load with digoxin due to continued A. fib with RVR -On anticoagulation with Xarelto -Vital signs otherwise stable, continue to monitor Status: Acute Code(s): I48.91 - Unspecified atrial fibrillation Additional A&P Information -HTN; continue oral antihypertensives -hx of non-ischemic cardiomyopathy; Echo (2018): EF=25-30% -Hyperlipidemia -NIDDM type II -COPD, not oxygen dependent at baseline, no acute exacerbation -continue meds as ordered -cardiac diabetic diet as tolerated -no need for DVT ppx as on Xarelto -Dispo: home -Code status: FULL code Attestations Medical Necessity Statement*: Patient requires hospitalization for continued telemetry monitoring and appropriate heart rate control, addition of digoxin today. Time Spent in Patient Care: Greater than 35 minutes (>than 50% of time spent in counselling and/or direct pt care on unit). Coding Level of Care Code Acute De Icer Element Winder for Ortiz García Diagnoses Atrial fibrillation with RVR I48.91
--- NOTE | 2019-12-22 19:22 | PC.NURSE ---
nurse note assessment done at 0800 this morning was done by me Deidra Reyes. I did not realize that I had logged under Atiya Cynthia rn also am meds where given under her by gave by me. not on purpose.
[2019-12-23 03:50] VITALS: BP 124/78; PULSE 117; RESP 20; TEMP 36.6; O2SAT 93
[2019-12-23 04:42] VITALS: PULSE 108
[2019-12-23] MEDS: digoxin 125 mcg Tablet PO ×2 (04:42→11:35)
[2019-12-23] MEDS: carvedilol 12.5 mg Tablet PO (05:28)
[2019-12-23 07:27] VITALS: BP 120/78; PULSE 108; RESP 16; TEMP 36.6; O2SAT 95
--- NOTE | 2019-12-23 08:09 | ECG_ITS ---
Measurements Intervals [place] Rate: 105 P: ME: 0 QRS: -36 QRSD: 104 T: 91 QT: 344 QTc: 455 ATRIAL FIBRILLATION WITH RAPID VENTRICULAR RESPONSE MARKED LEFT AXIS DEVIATION [QRS AXIS < -30] INCOMPLETE RIGHT BUNDLE BRANCH BLOCK [90+ ms QRS DURATION, TERMINAL R IN V1/V2, 40+ ms S IN I/aVL/V4/V5/V6] NONSPECIFIC T-WAVE ABNORMALITY Compared to ECG 12/21/2019 09:07:26 Incomplete right bundle-branch block now present T-wave abnormality now present ST (T wave) deviation no longer present Electronically Signed On 12-23-2019 14:28:16 SHIRT BANDER by Cosme Henriquez M.D. [id number]
[2019-12-23] MEDS: metoprolol tartrate 1 mg/1 mL SDV 5 mL 5 MG IV (08:13)
[2019-12-23] MEDS: FUROsemide 40 mg Tablet PO (08:15)
[2019-12-23] MEDS: lisinopril 5 mg Tablet PO (08:16)
[2019-12-23] MEDS: rivaroxaban 10 mg Tablet 20 MG PO (08:16)
[2019-12-23] MEDS: metformin 500 mg Tablet PO (08:16)
--- NOTE | 2019-12-23 09:06 | PM.PN ---
Subjective Subjective: Interval history: Reviewed vital signs, telemetry shows continued atrial fibrillation with episodes of RVR, HR as high as 160s though not sustained. Digoxin load ongoing. Seems to respond better to metoprolol so will switch to this and d/c coreg. Is in good spirits, reports feeling well, no complaints, no acute overnight events reported. Telemetry in PM shows HR control and patient would like to go home this afternoon. Medications: Reviewed: Yes Medication Review Details: Current Medications Generic Name Dose Route Start Last Admin Trade Name Freq PRN Reason Stop Dose Admin Carvedilol 12.5 mg 12/21/19 06:15 12/23/19 05:28 Coreg PO 12.5 mg Q12H LOY Administration Digoxin 125 mcg 12/22/19 17:15 12/23/19 04:42 Lanoxin PO 12/25/19 05:16 125 mcg Q6H LOY Administration Diltiazem HCl 30 mg 12/21/19 06:14 12/22/19 03:50 Cardizem PO 30 mg Q6H PRN Administration heart rate > 120 Furosemide 40 mg 12/22/19 09:00 12/23/19 08:15 Lasix PO 40 mg DAILY LOY Administration Lisinopril 5 mg 12/21/19 09:00 12/23/19 08:16 Prinivil PO 5 mg DAILY LOY Administration Metformin HCl 500 mg 12/21/19 09:00 12/23/19 08:16 Glucophage PO 500 mg BID LOY Administration Metoprolol Tartrat e 5 mg 12/21/19 08:51 12/23/19 08:13 Metoprolol Tartr ate IV 5 mg Q4H PRN Administration HEART RATE-HIGH Potassium Chloride 10 meq 12/21/19 09:00 12/23/19 08:16 Klor-Con 10 PO 10 meq BID LOY Administration Vitals/I&O/Wt Last Vital Signs Temp 97.9 F 12/23/19 07:27 Pulse 108 H 12/23/19 07:27 Resp 16 12/23/19 07:27 BP 120/78 12/23/19 07:27 Pulse Ox 95 12/23/19 07:27 12/22/19 12/23/19 12/23/19 22:59 06:59 14:59 Intake Total 240 / 1440 490 / 1930 200 / 200 Output Total 100 / 100 Balance 240 / 1440 390 / 1830 200 / 200 Weight last 48 hrs Weight 95.3 kg Weight 97.477 kg Physical Exam Const: COMMON NORMALS: no apparent distress and oriented x3 GENERAL APPEARANCE: cooperative and comfortable ORIENTATION/CONSCIOUSNESS: Yes awake HENMT: COMMON NORMALS: normocephalic, head/scalp atraumatic, hearing grossly normal bilaterally and moist oral mucous membranes HEAD & SCALP: normocephalic and atraumatic Eye: COMMON NORMALS: PERRL, EOMs intact bilaterally and conjunctivae normal CONJUNCTIVA: Yes conjunctivae normal PUPIL: Yes PERRL Neck/C-Spine: COMMON NORMALS: full ROM GENERAL: Yes normal visual inspection and Yes trachea midline Resp: COMMON NORMALS: normal respiratory effort, no retractions, no use of accessory muscles and clear to auscultation bilaterally EFFORT & INSPECTION: Yes able to speak in complete sentences, Yes symmetric chest movement and No tachypneic AUSCULTATION: clear to auscultation bilaterally Cardio: COMMON NORMALS: regular rate, S1 normal heart sound, S2 normal heart sound and no murmurs RATE: regular rate RHYTHM: abnormal rhythm irregularly irregular HEART SOUNDS: S1 normal and S2 normal GI: COMMON NORMALS: normal to inspection, nondistended, normoactive bowel sounds, soft to palpation and non-tender PALPATION: Yes soft Extremity: COMMON NORMALS: normal to inspection, full ROM and no clubbing, cyanosis or edema; negative for no pedal edema Neuro: COMMON NORMALS: oriented x3, moves all extremities, no focal motor deficits, no sensory deficits noted and gait normal Psych: COMMON NORMALS: mental status grossly normal, thought process normal, cooperative, affect normal and speech normal SPEECH: Yes normal speech THOUGHT PROCESS: normal thought process Skin: COMMON NORMALS: no rashes or lesions noted, no jaundice, no petechiae and no mottling GENERAL SKIN EXAM: no rashes or lesions noted Data : 12/20/19 16:30 12/21/19 04:45 A&P Assessment and plan (1) Atrial fibrillation with RVR: -presented with atrial fibrillation with RVR, likely due to running out of home medications -Required Cardizem drip for a brief period of time in the ER; weaned off after initiation of oral Cardizem and dose of Coreg. Seems to be more responsive to metoprolol so will switch to this and d/c coreg -Telemetry monitoring -Continue oral Cardizem and Coreg, titrate as needed for optimal response; add metoprolol as needed; will load with digoxin due to continued A. fib with RVR -On anticoagulation with Xarelto -Vital signs otherwise stable, continue to monitor Status: Acute Code(s): I48.91 - Unspecified atrial fibrillation Additional A&P Information -HTN; continue oral antihypertensives -hx of non-ischemic cardiomyopathy; Echo (2018): EF=25-30% -Hyperlipidemia -NIDDM type II -COPD, not oxygen dependent at baseline, no acute exacerbation -continue meds as ordered -cardiac diabetic diet as tolerated -no need for DVT ppx as on Xarelto -Dispo: home -Code status: FULL code Attestations Medical Necessity Statement*: Discharge this afternoon. Time Spent in Patient Care: Greater than 35 minutes (>than 50% of time spent in counselling and/or direct pt care on unit). Coding Level of Care Code Acute Corporate Representative for [facility] F[employer] Exam Detailed Diagnoses Atrial fibrillation with RVR I48.91
[2019-12-23] MEDS: dilTIAZem 30 mg Tablet PO ×2 (09:56→14:33)
[2019-12-23 11:35] VITALS: BP 100/78; PULSE 102; PULSE 87; RESP 16; TEMP 36.3; O2SAT 94
[2019-12-23 14:51] VITALS: BP 100/78; PULSE 87; RESP 16; TEMP 36.3; O2SAT 94
--- NOTE | 2019-12-23 15:09 | PC.NURSE ---
Discharge instructions given per the physician's orders. Patient verbalized understanding and did not have any further questions.
== END 2019-12-23 15:21 | disposition home or self-care (01) | DRG 308 ==
LOC: ER 16:09 → CSU 21:17 → MEDSURG 23:04
PROVIDERS: Admitting Provider Hospitalist; Emergency Provider Emergency Medicine; PCP Internal Medicine; Visit Provider Family Medicine
DX: I48.20 Chronic atrial fibrillation, unspecified (principal); I50.23 Acute on chronic systolic (congestive) heart failure; E11.9 Type 2 diabetes mellitus without complications; E78.5 Hyperlipidemia, unspecified; I42.8 Other cardiomyopathies; J43.9 Emphysema, unspecified; I11.0 Hypertensive heart disease with heart failure; Z79.01 Long term (current) use of anticoagulants; Z87.891 Personal history of nicotine dependence
CPT/HCPCS: 12345; 36415; 71045; 80048; 80053; 84484; 85025; 93005; 96365; 96366; 96375; 99283; G0378; J1940; J3490; J7030; J7040; Q3014

== ENCOUNTER 2020-09-04 09:39 | Outpatient (CLI) | payer OTHER, SELFPAY ==
--- NOTE | 2020-09-04 10:15 | USCV_ITS ---
Nahum Armstrong Age: 79 Gender: M : 1940 Exam Date: 09/04/2020 10:03 Ordering Phys: Deon Singh MD ([email or web address]) Technologist: Cheryl Hong Exam Location: [facility] Indication: CHEST PAIN ATYPICAL BP: / HR: 120 Rhythm: Atrial fibrillation Technical Quality: Adequate MEASUREMENTS (Male / Female) Normal Values 2D ECHO LV Diastolic Diameter PLAX 4.6 cm 4.2 - 5.9 / 3.9 - 5.3 cm LV Systolic Diameter PLAX 3.9 cm LV Chamber Size 3.4 cm IVS Diastolic Thickness 1.6 cm 0.6 - 1.0 / 0.6 - 0.9 cm IVS Systolic Thickness 2.0 cm LVPW Diastolic Thickness 2.0 cm 0.6 - 1.0 / 0.6 - 0.9 cm LVPW Systolic Thickness 1.8 cm RV Chamber Size 2.6 cm LVOT Diameter 2.1 cm LV Ejection Fraction 2D Teich 33.0 % LV Ejection Fraction MOD 2C 5.9 % LV Ejection Fraction 2C AL 20.6 % LA Diameter 4.6 cm LA Width 3.3 cm LA Height 4.0 cm RA Width 5.0 cm RA Height 5.1 cm Aorta at Sinotubular Diameter 4.1 cm M-MODE LV Diastolic Diameter MM 5.0 cm 4.2 - 5.9 / 3.9 - 5.3 cm LV Systolic Diameter MM 3.9 cm LV Ejection Fraction MM Teich 42.7 % IVS Diastolic Thickness MM 1.3 cm 0.6 - 1.0 / 0.6 - 0.9 cm IVS Systolic Thickness MM 1.6 cm LVPW Diastolic Thickness MM 1.4 cm 0.6 - 1.0 / 0.6 - 0.9 cm LVPW Systolic Thickness MM 1.8 cm RV Diastolic Diameter MM 2.2 cm Aortic Annulus Diameter 4.0 cm LA Ao Ratio MM 1.3 MV E Point Septal Separation 0.9 cm DOPPLER AV Peak Velocity 138.3 cm/s LVOT Peak Velocity 58.3 cm/s AV Area Cont Eq vti 1.6 cm squared AV Area Cont Eq pk 1.4 cm squared MV Area PHT 5.0 cm squared MV E' Velocity 40.0 cm/s Mitral E to MV E' Ratio 7.6 Mitral E to LV E' Lateral Ratio 6.3 Mitral E to LV E' Septal Ratio 9.6 TR Peak Velocity 227.0 cm/s TR Peak Gradient 20.6 mmHg TR Mean Velocity 153.3 cm/s TR Mean Gradient 11.8 mmHg TR Velocity Time Integral 60.7 cm TV Peak E Velocity 66.0 cm/s Right Atrial Pressure 3.0 mmHg Pulmonary Artery Systolic Pressu 23.6 mmHg PV Peak Velocity 74.0 cm/s RV Acceleration Time 0.1 s RV Ejection Time 0.3 s RV AcT/ET 0.5 FINDINGS Left Ventricle Diffuse hypokinesia of the left ventricle with diminished ejection fraction of 35 to 40%. Normal LV size. Right Ventricle Mildly increased right ventricular size. Normal right ventricular systolic function. Right Atrium Moderately increased right atrial size. Echodensities in the right atrium, possible Chiari malformation Left Atrium Mildly increased left atrial size. Mitral Valve Thickened mitral valve. Aortic Valve Thickened aortic valve. Mild aortic valve regurgitation. Tricuspid Valve Moderate eccentric tricuspid valve regurgitation. Pulmonic Valve No gross abnormalities noted Pericardium No pericardial effusion. Aorta Normal aortic annulus size. CONCLUSIONS Diffuse hypokinesia of the left ventricle with diminished ejection fraction of 35 to 40%. Normal LV size. Moderately increased right atrial size. Echodensities in the right atrium, possible Chiari malformation. Mildly increased left atrial size. Thickened aortic valve. Mild aortic valve regurgitation. Moderate eccentric tricuspid valve regurgitation. Estimated pulmonary artery peak systolic pressure 24 mmHg There is no pericardial effusion. There are no intracardiac masses. Compared to the study from 03/17/2018, there is some improvement in the LV ejection fraction Dr Deon Singh MD FAC (Electronically Signed) Final Date: 04 September 2020 14:38 S
--- NOTE | 2020-09-04 11:00 | USCV_ITS ---
Patti Nahum Age: 79 Gender: M : 1940 Exam Date: 09/04/2020 10:25 Ordering Phys: Deon Singh MD ([email or web address]) Technologist: Cheryl Hong [place] [facility] [place]: SCREENING HISTORY: Diameter (cm) AP x Transverse x Length Velocity (cm/s) Waveform Prox Aorta: 2.98 x 2.80 x 64.20 Mid Aorta: 2.48 x 2.33 x 59.00 Distal Aorta: 3.17 x 3.17 x 53.70 Right Iliac Prox: 1.93 x 1.96 x 65.30 Left Iliac Prox: 1.52 x 1.74 x 41.90 Stent Prox Landing x x Aneurysmal Sac Max x x Lt Lat Sac Dim Rt Lat Sac Dim Stent Dist Landing x x Right Iliac Stent x x Left Iliac Stent x x Right Renal Art Left Renal Art FINDINGS: Aneurysmal dilatation of the distal abdominal aorta Mild to moderate diffuse plaques in the abdominal aorta Dilated common iliac arteries bilaterally CONCLUSIONS 1. 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 2. Dilated common iliac arteries bilaterally 3. Mild to moderate diffuse plaques in the abdominal aorta. With no significant stenosis Dr Deon Singh MD [facility] (Electronically Signed) Final Date: 04 September 2020 20:44 S MTDD
== END 2020-09-04 09:40 | disposition home or self-care (01) ==
LOC: RAD 09:42
PROVIDERS: PCP Family Medicine; Visit Provider Internal Medicine Cardiovascular Disease
DX: I71.4 Abdominal aortic aneurysm, without rupture (principal); R07.89 Other chest pain; I08.2 Rheumatic disorders of both aortic and tricuspid valves
CPT/HCPCS: 93306; 93978

== ENCOUNTER 2023-05-05 12:16 | Inpatient (IN) | payer OTHER, SELFPAY ==
[2023-05-05] VITALS (10 sets, daily range): BP systolic 107–133; BP diastolic 72–82; PULSE 73–150; RESP 16–31; TEMP 36.4–36.8; O2SAT 92–97; BMI 29.8
--- NOTE | 2023-05-05 12:26 | ECG_ITS ---
[facility] Test Date: 2023-05-05 Pat Name: Nahum Armstrong Department: Room: Gender: Male Senior Pensions Administrator: : 1940 Requested By: Sandrine Cochran Order Number: [id number] Patricia MD: Deon Singh M.D. Measurements Intervals [place] Rate: 124 P: 0 WI: 0 QRS: 11 QRSD: 99 T: 0 QT: 144 QTc: 207 Interpretive Statements ATRIAL FIBRILLATION WITH RAPID VENTRICULAR RESPONSE INCOMPLETE RIGHT BUNDLE BRANCH BLOCK [90+ ms QRS DURATION, TERMINAL R IN V1/V2, 40+ ms S IN I/aVL/V4/V5/V6] NONSPECIFIC T-WAVE ABNORMALITY ABNORMAL RHYTHM ECG Compared to ECG 12/23/2019 08:37:28 Left-axis deviation no longer present T-wave abnormality still present Electronically Signed On 05-06-2023 10:09:21 CDT by Deon Singh M.D. [id number]
--- NOTE | 2023-05-05 12:29 | W.ED.ARRPALP ---
HPI - Arrhythmia/Palpitations General: Chief Complaint: Arrhythmia/Palpitations Stated Complaint: A Fib RVR Time Seen by Provider: 05/05/23 12:20 Source: EMS Mode of arrival: EMS Limitations: no limitations History of Present Illness: 82-year-old male has a history of A-fib states he supposed to be on digoxin at home. He states has been out of his digoxin for a week and has not taken it states today having palpitations per EMS his heart rate was in the 160s I did give him IV Cardizem he is still in the 120s to 130s he has some mild pain he states just a fluttering pain in his left chest denies any shortness of breath denies any fevers. Associated symptoms: Deny nausea or vomiting Review of Systems Const: Denies: fever(s), chills, body aches or change in appetite Eyes: Denies: blurry vision or eye discomfort ENMT: Denies: throat pain or dental pain Card: Reports: palpitations; Denies: chest pain Resp: Denies: dyspnea GI: Denies: abdominal pain, nausea, vomiting or diarrhea : Denies: dysuria Musc: Denies: neck pain or back pain Skin/Breast: Denies: rash All/Imm: Denies: urticaria PFSH ED PFSH: Medical History (Updated 05/05/23 @ 13:23 by Sandrine Cochran MD) Abdominal aneurysm without mention of rupture Benign essential HTN Chronic atrial fibrillation Coreg Chronic episodic atrial fibrillation Congestive heart failure with cardiomyopathy COPD (chronic obstructive pulmonary disease) Diabetes mellitus, type II Dyslipidemia Hyperlipidemia Hypertension Non-ischemic cardiomyopathy EF 25-30% 2018, on ACEI Surgical History History of tonsillectomy Family History Other CAD (coronary artery disease) CHF (congestive heart failure) Cancer Social History Smoking and tobacco status: former smoker Household members: spouse and children Marital status: Physical Exam Const: COMMON NORMALS: patient oriented x3 HENMT: COMMON NORMALS: normocephalic and atraumatic HEAD & SCALP: normocephalic and atraumatic Eye: COMMON NORMALS: conjunctivae normal CONJUNCTIVA: Yes conjunctivae normal Neck/C-Spine: COMMON NORMALS: full ROM and supple Chest: COMMONS NORMALS: normal inspection of the chest and normal palpation of entire chest wall Resp: COMMON NORMALS: normal respiratory effort, No retractions, No use of accessory muscles and clear to auscultation bilaterally AUSCULTATION: clear to auscultation bilaterally Cardio: COMMON NORMALS: No murmurs present (Cardio) RATE: tachycardic RHYTHM: abnormal rhythm irregularly irregular GI: COMMON NORMALS: Normal to inspection, nondistended, normoactive bowel sounds present, Soft to palpation, non-tender and no masses PALPATION: Yes Soft to palpation Extremity: COMMON NORMALS: normal to inspection and full ROM Neuro: COMMON NORMALS: patient oriented x3, moves all extremities and no focal motor deficits Psych: COMMON NORMALS: mental status grossly normal, Normal thought process present and cooperative THOUGHT PROCESS: Normal thought process present Skin: COMMON NORMALS: no rashes or lesions noted and no wounds GENERAL SKIN EXAM: no rashes or lesions noted Course Vital Signs: Vital signs: Vital Signs Temperature 97.6 F 05/05/23 12:25 Pulse Rate 145 H 05/05/23 13:04 Respiratory Rate 20 H 05/05/23 12:25 Blood Pressure 107/82 05/05/23 12:25 Pulse Oximetry 95 05/05/23 13:04 Oxygen Delivery Me thod Room Air 05/05/23 13:04 MDM - Arrhythmia/Palpitations Medical Decision Making Patient presents with A-fib with RVR likely due to noncompliance has not been on his digoxin he is on a Cardizem drip. Did give him a dose of digoxin he has been pain-free I spoke to hospitalist will admit to the cardiac stepdown unit. Medical Records I reviewed the patient's medical records. Lab Data I reviewed the patient's lab results. 05/05/23 11:53 05/05/23 11:53 Radiology Impressions Chest X-Ray 05/05/23 12:40 IMPRESSION: 1. Probable left lower lobe infiltrate. Left basal pleural effusion. 2. Cardiac enlargement unchanged Laboratory Results WBC 5.8 10^3/uL (4.0-10.0) 05/05/23 11:53 RBC 3.32 10^6/uL (4.1-5.3) L 05/05/23 11:53 Hgb 7.3 g/dL (11.7-16.6) L 05/05/23 11:53 Hct 26.8 % (42.0-52.0) L 05/05/23 11:53 MCV 80.7 fl (80-94) 05/05/23 11:53 MCH 22.0 pg (28.0-34.0) L 05/05/23 11:53 MCHC 27.2 g/dL (30.0-36.0) L 05/05/23 11:53 RDW 17.0 % (12.1-15.1) H 05/05/23 11:53 Plt Count 320 10^3/cmm (130-400) 05/05/23 11:53 MPV 9.3 fL (7.4-10.4) 05/05/23 11:53 Neut % (Auto) 62.9 % 05/05/23 11:53 Lymph % (Auto) 23.4 % 05/05/23 11:53 Wilson % (Auto) 10.8 % 05/05/23 11:53 Eos % (Auto) 0.9 % 05/05/23 11:53 Baso % (Auto) 1.7 % 05/05/23 11:53 Neut # (Auto) 3.62 10^3/uL (1.8-7.7) 05/05/23 11:53 Lymph # (Auto) 1.4 10^3/uL (0.8-4.8) 05/05/23 11:53 Wilson # (Auto) 0.6 10^3/uL (0.2-0.9) 05/05/23 11:53 Eos # (Auto) 0.1 10^3/uL (0.0-0.8) 05/05/23 11:53 Baso # (Auto) 0.1 10^3/uL (0.0-0.1) 05/05/23 11:53 Nucleated RBC % (auto) 0.5 % 05/05/23 11:53 Nucleated RBCs # 0.0 /100WBC 05/05/23 11:53 PT 24.90 SECONDS (12.1-14.9) H 05/05/23 11:53 INR 2.16 (0.8-1.2) H 05/05/23 11:53 Sodium 137 mmol/L (136-145) 05/05/23 11:53 Potassium 4.4 mmol/L (3.5-5.1) 05/05/23 11:53 Chloride 103 mmol/L (98-107) 05/05/23 11:53 Carbon Dioxide 24 mmol/L (22-29) 05/05/23 11:53 Anion Gap 14.4 (5-19) 05/05/23 11:53 BUN 16 mg/dL (8-23) 05/05/23 11:53 Creatinine 0.8 mg/dL (0.7-1.2) 05/05/23 11:53 GFR Calculation Not Reportable 05/05/23 11:53 Glucose 181 mg/dL (65-115) H 05/05/23 11:53 Calculated Osmolality 290 mOsm/kg (285-295) 05/05/23 11:53 Calcium 8.3 mg/dL (8.5-10.5) L 05/05/23 11:53 Total Bilirubin 0.4 mg/dL (0.15-1.2) 05/05/23 11:53 AST 14 U/L (0-40) 05/05/23 11:53 ALT 8 U/L (0-41) 05/05/23 11:53 Alkaline Phosphatase 90 U/L (40-130) 05/05/23 11:53 Troponin T Baseline 23 ng/L (0-15) H 05/05/23 11:53 Total Protein 6.9 g/dL (6.6-8.7) 05/05/23 11:53 Albumin 4.0 g/dL (3.5-5.2) 05/05/23 11:53 Globulin 2.9 g/dL (1.3-4.6) 05/05/23 11:53 Digoxin 0.3 ng/mL (0.6-1.2) L 05/05/23 11:53 EKG Data EKG 1: I personally reviewed and interpreted this EKG as follows: EKG interpretation date: 05/05/23 EKG interpretation time: 12:40 Interpretation: afib with rvr hr [address] or t wave abnormalities qrs 99 qtc 218 Other EKG comments: Chest X-Ray 05/05/23 12:40 IMPRESSION: 1. Probable left lower lobe infiltrate. Left basal pleural effusion. 2. Cardiac enlargement unchanged Critical Care Time Critical Care Time: Critical Care Time: Yes Total Critical Care Time: 40 Attestation: The high probability of a clinically significant, sudden or life threatening deterioration of the patient's cv system(s) required my full and direct attention, intervention and personal management. The critical care time is as shown. This time is in addition to time spent performing any reported procedures but includes the following: [x] Data and vital sign review and interpretation [x] Patient assessment, examination and intervention [x] Documentation [x] Medication orders and management Discharge Plan Discharge Patient Disposition: Admitted As Inpatient Clinical Impression: Atrial fibrillation with RVR Condition: Stable Prescriptions: No Action digoxin 125 mcg (0.125 mg) tablet 125 mcg PO DAILY metformin 500 mg Tablet 500 mg PO BID 30 Days Qty: 60 0RF benazepril 5 mg Tablet 5 mg PO QAM metoprolol tartrate 50 mg tablet 50 mg PO BID Claritin 10 mg Tablet 10 mg PO DAILY PRN (Reason: Allergy Symptoms) Crestor 20 mg Tablet 10 mg PO QPM Prilosec OTC 20 mg Tablet,Delayed Release (Dr/Ec) 10 mg PO DAILY PRN (Reason: Acid Reflux) Vitamin D3 25 mcg (1,000 unit) Tablet 3,000 unit PO DAILY furosemide 40 mg tablet 40 mg PO DAILY PRN (Reason: Edema) aspirin 325 mg tablet 650 mg PO .EVERY 2 WEEKS Xarelto 20 mg tablet 20 mg PO BEDTIME alogliptin 25 mg tablet 25 mg PO QAM Referrals: Mariola Ballesteros MD [Primary Care Provider] - Coding Level of Care Code ED Analytical Statistician for [facility] García
[2023-05-05 12:33] LABS: Basophils # 0.1 10^3/uL (0.0-0.1); Basophils % 1.7 %; Eosinophils # 0.1 10^3/uL (0.0-0.8); Eosinophils % 0.9 %; Hematocrit 26.8 % (42.0-52.0); Hemoglobin 7.3 g/dL (11.7-16.6); Lymphocytes # 1.4 10^3/uL (0.8-4.8); Lymphocytes % 23.4 %; Mean Corpuscular HGB Conc 27.2 g/dL (30.0-36.0); Mean Corpuscular Volume 80.7 fl (80-94); Mean Platelet Volume 9.3 fL (7.4-10.4); Monocytes # 0.6 10^3/uL (0.2-0.9); Monocytes % 10.8 %; Neutrophils # 3.62 10^3/uL (1.8-7.7); Neutrophils % 62.9 %; Nucleated Red Blood Cells % 0.5 %; Platelet Count 320 10^3/cmm (130-400); Red Blood Count 3.32 10^6/uL (4.1-5.3); White Blood Count 5.8 10^3/uL (4.0-10.0)
[2023-05-05 12:40] LABS: INR 2.16 (0.8-1.2)
--- NOTE | 2023-05-05 12:40 | XR_ITS ---
WS: [id number] Exam: XR chest 1V portable [id number] Date/Time of Exam: 05/05/2023 12:42 PM Reason For Exam: cp Comparison 12/20/2019. There is probable infiltrate in the left lower lobe with left basal pleural effusion. Cardiac enlarge ment unchanged. The right lung is clear. No pneumothorax. The mediastinum is mildly prominent but unc hanged in appearance. Bony structures are intact. XR/XR chest 1V portable [id number] IMPRESSION: 1. Probable left lower lobe infiltrate. Left basal pleural effusion. 2. Cardiac enlargement unchanged
[2023-05-05] MEDS: digoxin 125 mcg Tablet PO (12:52)
[2023-05-05 12:53] LABS: Digoxin 0.3 ng/mL (0.6-1.2)
[2023-05-05 12:54] LABS: Alanine Aminotransferase 8 U/L (0-41); Alkaline Phosphatase 90 U/L (40-130); Anion Gap 14.4 (5-19); Aspartate Amino Transferase 14 U/L (0-40); Blood Urea Nitrogen 16 mg/dL (8-23); Calcium 8.3 mg/dL (8.5-10.5); Carbon Dioxide 24 mmol/L (22-29); Chloride 103 mmol/L (98-107); Globulin 2.9 g/dL (1.3-4.6); Glucose 181 mg/dL (65-115); Osmolality Calculated 290 mOsm/kg (285-295); Potassium 4.4 mmol/L (3.5-5.1); Sodium 137 mmol/L (136-145); Total Bilirubin 0.4 mg/dL (0.15-1.2); Total Protein 6.9 g/dL (6.6-8.7)
[2023-05-05 12:56] LABS: Troponin(5th) Baseline 23 ng/L (0-15)
--- NOTE | 2023-05-05 12:57 | PC.PHAR ---
pt states he takes care of his own medications-pt states he hasnt been taking all his medications -pt states he hasnt taken alogliptin 25mg qam for 3 weeks-benazepril 5mg daily for 3 weeks-digoxin 125mcg daily for a week-lasix 40mg qd prn for a month-metformin 500mg bid for about 10 days-metoprolol tartrate 50mg bid for 2 weeks-vitamin d3 3000 units daily for 2 weeks-pt states he has been taking his crestor 10mg qpm and xarelto 20mg hs every night-pt states he had gotten confused on some medications and states some of the medications are to expensive that the nm sends so he hasnt been taking-pt states he is no longer taking kcl 20meq daily va med list has kcl -notes are made in the pharmacy comments
[2023-05-05] MEDS: sodium chloride 0.9% 1,000 ML 999 ML IV (12:59)
[2023-05-05 13:39] LABS: Troponin 5 2HR 17.95 ng/L (0-15)
[2023-05-05 13:40] LABS: Troponin 5 2HR Delta -5.05 ABS# (0-10)
[2023-05-05 14:45] LABS: Iron 20 ug/dL (59-158); NT Pro B Type Natriuretic Pept 1301 pg/mL (0-450); Percent Saturation 3.8 % (20-50); Total Iron Binding Capacity 516 mcg/dl; Unsaturated Iron Binding 496 ug/dL (112-347)
[2023-05-05 14:53] LABS: Thyroid Stimulating Hormone 3.53 uIU/mL (0.27-4.20); Vitamin B12 606 pg/mL (232-1245)
--- NOTE | 2023-05-05 15:09 | P.HP_ITS ---
Providers/Chief Complaint Admitting Physician: Renzo Frias MD Primary Care Provider: Mariola Ballesteros MD Chief Complaint: A Fib RVR History of Present Illness Nahum Armstrong is a 82 year old male with past medical history of atrial fibrillation on metoprolol and digoxin, Xarelto for anticoagulation, nonischemic cardiomyopathy with a EF of around 30% 3 years ago, type 2 diabetes mellitus, abdominal aneurysm was sent in today from [place] clinic for elevated heart rate. In the ER patient was found to be in A-fib with RVR started on IV Cardizem along with oral digoxin of 125 mcg. As per patient he has not taken his oral medications including metoprolol, digoxin and and few others though has been taking his Xarelto regularly for last 10 days to 2 weeks as he ran out of medications and did not have many to get more. Patient himself complains of palpitations but denies of having any dizziness, nausea, vomiting, chest pain, difficulty in breathing. He states otherwise he feels at his baseline health. He does complain of mild shortness of breath on exertion. Denies of having any hematemesis, melena, hematuria or bleeding from anywhere. Does not know his baseline hemoglobin. In the ER patient was started on Cardizem drip, given 1 L of IV fluid bolus and oral digoxin 125 mcg 1 time. On examination he is on 10 of IV Cardizem. Review of Systems General: Reports: 10 or more systems reviewed and unremarkable except in HPI and below Const: Denies: fever(s), chills, body aches, change in appetite, change in weight, malaise, night sweats, diaphoresis, change in sleep pattern, daytime sleepiness or snoring Eyes: Denies: change in vision, blurry vision, photophobia, eye discomfort or eye discharge ENMT: Denies: throat pain, enlarged tonsils, hoarseness, mouth pain, oral sores, dry mouth, tinnitus, nasal congestion or post nasal drip Card: Denies: chest pain, palpitations, irregular heart rhythm, edema, swelling of feet/ankles, lightheadedness, syncope, pre-syncope, dyspnea on exertion, orthopnea, leg pain with exertion or acrocyanosis Resp: Denies: dyspnea, productive cough, non-productive cough, wheezing, stridor, pain on inspiration, change in phlegm color, hemoptysis or chest congestion GI: Denies: abdominal pain, nausea, vomiting, hematemesis, coffee ground emesis, dysphagia, heartburn, diarrhea, constipation, bloating, GI cramping, change in bowel habits, pain on defecation, hematochezia or melena : Denies: flank pain, difficulty urinating, dysuria, urinary frequency, urinary urgency, urinary hesitancy, urinary dribbling, difficulty starting urination, change in urine stream, nocturia or hematuria Musc: Denies: neck pain, back pain, extremity pain, joint pain, joint swelling, joint redness, joint stiffness or limited range of motion Neuro: Denies: headache(s), numbness in extremities, weakness in extremities, sensory changes, lack of coordination, difficulty walking, frequent falls, dizziness, vertigo, confusion, Slurred speech present, difficulty communicating thoughts or seizure-like activity Psych: Denies: anxiety, depression, mood swings, panic attacks, hopelessness or irritability Endo: Denies: polyuria, polydipsia, tired all the time, cold intolerance, excessive sweating, flushing or heat intolerance Thomas/Lymph: Denies: easy bruising or easy bleeding All/Imm: Denies: tongue swelling, facial swelling or acute wheezing Medications/Allergies Home Medications Medication Instructions Recorded Confirmed Last Taken Type metformin 500 mg tablet 500 mg PO BID 30 days #60 tabs 12/22/19 05/05/23 10 Days Ago Rx ~04/25/23 digoxin 125 mcg (0.125 mg) tablet 125 mcg PO DAILY 08/07/20 05/05/23 1 Week Ago History ~04/28/23 not had in a week alogliptin 25 mg tablet 25 mg PO [facility] 05/05/23 05/05/23 3 Weeks Ago History ~04/14/23 not taken in 3 weeks aspirin 325 mg tablet 650 mg PO .EVERY 2 WEEKS 05/05/23 05/05/23 Unknown History benazepril 5 mg tablet 5 mg PO QA 05/05/23 05/05/23 3 Weeks Ago History ~04/14/23 not had in 3 weeks cholecalciferol (vitamin D3) 25 3,000 unit PO DAILY 05/05/23 05/05/23 2 Weeks Ago History mcg (1,000 unit) tablet (Vitamin ~04/21/23 D3) furosemide 40 mg tablet 40 mg PO DAILY PRN Edema 05/05/23 05/05/23 1 Month Ago History ~04/04/23 loratadine 10 mg tablet (Claritin) 10 mg PO DAILY PRN Allergy Symptoms 05/05/23 05/05/23 Unknown History metoprolol tartrate 50 mg tablet 50 mg PO BID 05/05/23 05/05/23 2 Weeks Ago History ~04/21/23 not had in 2 weeks omeprazole magnesium 20 mg 10 mg PO DAILY PRN Acid Reflux 05/05/23 05/05/23 Unknown History tablet,delayed release (Prilosec OTC) rivaroxaban 20 mg tablet (Xarelto) 20 mg PO BEDTIME 05/05/23 05/05/23 05/04/23 History rosuvastatin 20 mg tablet (Crestor) 10 mg PO QPM 05/05/23 05/05/23 05/04/23 History Allergies Allergy/AdvReac Type Severity Reaction Status Date / Time No Known Allergies Allergy Verified 04/30/21 09:35 PFSH Acute PFSH: Medical History (Updated 05/05/23 @ 15:13 by Renzo Frias MD) Abdominal aneurysm without mention of rupture Benign essential HTN Chronic atrial fibrillation Coreg Chronic episodic atrial fibrillation Congestive heart failure with cardiomyopathy COPD (chronic obstructive pulmonary disease) Diabetes mellitus, type II Dyslipidemia Hyperlipidemia Hypertension Non-ischemic cardiomyopathy EF 25-30% 2017, on ACEI Surgical History History of tonsillectomy Family History Other CAD (coronary artery disease) CHF (congestive heart failure) Cancer Social History (Updated 05/05/23 @ 15:13 by Renzo Frias MD) Smoking and tobacco status: former smoker Alcohol intake: never Substance/Drug Use: never Caregiver/support person: Yes Lives independently: Yes Household members: spouse and children Marital status: Vitals/I&O/Wt Last Vital Signs Temp 97.6 F 05/05/23 12:25 Pulse 145 H 05/05/23 13:04 Resp 20 H 05/05/23 12:25 BP 107/82 05/05/23 12:25 Pulse Ox 94 05/05/23 14:51 O2 Del Method Room Air 05/05/23 14:51 05/05/23 05/05/23 05/05/23 06:59 14:59 22:59 Intake Total 22.167 / 22.167 Balance 22.167 / 22.167 Weight last 48 hrs Weight 99.79 kg Physical Exam Narrative: General: No acute distress, AO x3, telangiectasia present on her left HEENT: PERRLA, pupils bilaterally equal and reactive Chest: Normal vesicular breath sounds, no added sounds, equal good air entry bilaterally CVS: S1-S2 irregularly irregular, soft pansystolic murmur at apex,tachycardia, no gallops, no rubs Abdomen: Soft, nontender, no organomegaly, bowel sounds present Neuro: No focal deficits, no facial deformity, AO x3, power 5/5 in all limbs Data 05/05/23 11:53 05/05/23 11:53 A&P Assessment and plan (1) Atrial fibrillation with RVR: Most likely in setting of noncompliance with oral digoxin and metoprolol for last couple of weeks. Continue with IV Cardizem drip started in the ER. Been keeping heart rate less than 100. 500 mcg digoxin one-time IV. Continue with oral digoxin 125 mcg daily for now. Repeat digoxin levels daily for now. Restart home metoprolol but at a lower dose of 25 mg twice daily given borderline blood pressures. Takes Xarelto at home. Hold off for now given anemia. We will check echocardiogram once heart rate better controlled. Check TSH. (2) Anemia: Aspiration no active signs of bleeding. Check iron panel, vitamin B12, folate levels. Target hemoglobin more than 8. Repeat hemoglobin in evening. If less than 8 will transfuse 1 unit of PRBC. Check stool for occult blood. If hemoglobin continues to remain low will plan for consult surgery for possible EGD and colonoscopy. Patient is agreeable. IV Protonix 40 mg twice daily, Carafate before meals and at bedtime. (3) Non-ischemic cardiomyopathy: Chronic history. Last echocardiogram in August 2023 showed EF of 35 to 40%, moderately increased RA size, mildly increased LA size, PASP of 24 mmHg, moderate TR. (4) Congestive heart failure with cardiomyopathy: Mild exacerbation. Remains on room air. IV Lasix 20 mg one-time. Check proBNP. (5) COPD (chronic obstructive pulmonary disease): Qualifiers: COPD type: emphysema Emphysema type: panlobular Qualified Code(s): J43.1 - Panlobular emphysema (6) Abdominal aneurysm without mention of rupture: Repeat abdominal ultrasound. Last ultrasound from 2019. (7) Benign essential HTN: Goal blood pressure less than 140/90 mmHg. Mean over 65. Decreasing dose of metoprolol as above. Hold off on BRITTA inhibitor for now. (8) Serum digoxin level below therapeutic range: Plan Type 2 diabetes mellitus: Noncompliant to medication recently. Check A1c. Carb consistent cardiac diet. Sliding scale. CODE STATUS: Discussed in detail with the patient. Full code. His Cheryl will be the DPOA. Cardiac carb consistent diet. Protonix twice daily Hold off on Xarelto given acute anemia Attestations Medical Necessity Statement*: Requires admission for more than 2 midnights for management of atrial fibrillation with rapid ventricular response, anemia possibly requiring further work-up with EGD and colonoscopy. Diagnoses Atrial fibrillation with RVR I48.91 Anemia D64.9 Non-ischemic cardiomyopathy I42.8 Congestive heart failure with cardiomyopathy I50.9; I42.9 COPD (chronic obstructive pulmonary disease) J43.1 COPD type: emphysema Emphysema type: panlobular Abdominal aneurysm without mention of rupture I71.4 Benign essential HTN I10 Serum digoxin level below therapeutic range R78.89
[2023-05-05] MEDS: pantoprazole 40 mg SDV IVP (15:16)
[2023-05-05] MEDS: digoxin 250 mcg/ml INJ 2 mL 500 MCG IVP (15:17)
--- NOTE | 2023-05-05 16:55 | ECG_ITS ---
[facility] Test Date: 2023-05-05 Pat Name: Nahum Armstrong Department: Room: 108 Gender: Male Senior Payroll Administrator: : 1940 Requested By: Sandrine Cochran Order Number: [id number] Patricia MD: Felicia Pablo M.D. Measurements Intervals Ruso Rate: 84 P: 0 AZ: 0 QRS: 7 QRSD: 143 T: 180 QT: 358 QTc: 425 Interpretive Statements ATRIAL FIBRILLATION INTRAVENTRICULAR CONDUCTION DELAY [130+ ms QRS DURATION] Compared to ECG 05/05/2023 12:40:13 Intraventricular conduction delay now present Incomplete right bundle-branch block no longer present T-wave abnormality no longer present Electronically Signed On 05-06-2023 12:23:45 CDT by Felicia Pablo M.D. [email or web address]
[2023-05-05 17:27] LABS: Glucose Point of Care 167 mg/dL (70-110)
[2023-05-05] MEDS: insulin lispro 100 unit/1 mL SUBCUT ×2 (17:34→21:40)
[2023-05-05] MEDS: metoprolol tartrate 50 mg Tablet 25 MG PO (17:35)
[2023-05-05] MEDS: atorvastatin 40 mg Tablet PO (17:35)
[2023-05-05 18:34] LABS: Troponin 5 6HR 24.15 ng/L (0-15)
[2023-05-05 18:35] LABS: Troponin 5 6HR Delta 1.15 ng/L (0-12)
[2023-05-05] MEDS: digoxin 250 mcg/ml INJ 2 mL IVP (20:31)
[2023-05-05] MEDS: ipratropium-albuterol 3 mL Neb INHALATION (20:50)
[2023-05-05 20:57] LABS: Glucose Point of Care 156 mg/dL (70-110)
[2023-05-06] VITALS (158 sets, daily range): BP systolic 80–149; BP diastolic 24–108; PULSE 75–136; RESP 11–39; TEMP 36.3–37.1; O2SAT 61–100
[2023-05-06] MEDS: digoxin 250 mcg/ml INJ 2 mL IVP (02:28)
[2023-05-06] MEDS: pantoprazole 40 mg SDV IVP ×2 (02:29→17:57)
[2023-05-06 04:34] LABS: Add Urine Microscopic? YES; Bacteria Urine TRACE /hpf; Bilirubin Urine Neg (Negative); Blood Urine 2+ (Negative); Glucose Urine UA Norm (Normal); Ketones Urine Negative (Negative); Leukocyte Esterase Urine Negative (Negative); Nitrate Urine Negative (Negative); Protein Urine Neg (Negative); RBC Urine 0-4 /hpf (0-2); Specific Gravity, Urine 1.025 (1.005-1.030); Squamous Epithelial Cell Urine 0-4 /hpf (0-5); Urine Appearance Clear (CLEAR); Urine Color Yellow (Yellow); Urobilinogen Urine Neg (Negative); pH Urine 5 (5-7)
[2023-05-06 04:35] LABS: Add Urine Culture? No
[2023-05-06 06:02] LABS: Basophils # 0.1 10^3/uL (0.0-0.1); Basophils % 1.3 %; Eosinophils # 0.2 10^3/uL (0.0-0.8); Eosinophils % 2.3 %; Hematocrit 23.7 % (42.0-52.0); Hemoglobin 6.6 g/dL (11.7-16.6); Lymphocytes # 1.6 10^3/uL (0.8-4.8); Lymphocytes % 22.9 %; Mean Corpuscular HGB Conc 27.8 g/dL (30.0-36.0); Mean Corpuscular Hemoglobin 22.6 pg (28.0-34.0); Mean Corpuscular Volume 81.2 fl (80-94); Mean Platelet Volume 9.1 fL (7.4-10.4); Monocytes # 0.8 10^3/uL (0.2-0.9); Monocytes % 11.3 %; Neutrophils # 4.37 10^3/uL (1.8-7.7); Neutrophils % 61.9 %; Nucleated Red Blood Cells % 0.3 %; Platelet Count 270 10^3/cmm (130-400); Red Blood Count 2.92 10^6/uL (4.1-5.3); Red Cell Distribution Width 17.1 % (12.1-15.1); White Blood Count 7.1 10^3/uL (4.0-10.0)
[2023-05-06 06:13] LABS: Estmated Average Glucose 146; Hemoglobin A1C 6.7 % (4.0-6.0)
[2023-05-06 06:21] LABS: Digoxin 1.2 ng/mL (0.6-1.2)
[2023-05-06 06:23] LABS: Alanine Aminotransferase 6 U/L (0-41); Albumin Level 3.4 g/dL (3.5-5.2); Alkaline Phosphatase 80 U/L (40-130); Anion Gap 12.6 (5-19); Aspartate Amino Transferase 13 U/L (0-40); Blood Urea Nitrogen 14 mg/dL (8-23); Calcium 8.5 mg/dL (8.5-10.5); Carbon Dioxide 25 mmol/L (22-29); Chloride 107 mmol/L (98-107); Glucose 117 mg/dL (65-115); Magnesium 1.9 mg/dL (1.7-2.3); Osmolality Calculated 292 mOsm/kg (285-295); Phosphorus 3.1 mg/dL (2.5-4.5); Potassium 4.6 mmol/L (3.5-5.1); Sodium 140 mmol/L (136-145); Total Bilirubin 0.5 mg/dL (0.15-1.2); Total Protein 6.4 g/dL (6.6-8.7)
[2023-05-06 06:24] LABS: Chol HDL Ratio 3.09 mg/dL (1.0-5.00); Cholesterol 68 mg/dL (0-200); HDL Cholesterol 22 mg/dL (60-100); LDL Cholesterol Calculated 28 mg/dL (50-129); LDL HDL Ratio 1.27 RATIO (0.00-3.22); Triglycerides 92 mg/dL (0-150)
[2023-05-06 06:28] LABS: Glucose Point of Care 126 mg/dL (70-110)
[2023-05-06 06:48] LABS: Folate Level 14.8 ng/mL (4.5-32.2)
[2023-05-06] MEDS: metoprolol tartrate 50 mg Tablet 25 MG PO ×2 (09:10→18:18)
[2023-05-06] MEDS: digoxin 125 mcg Tablet PO (09:11)
--- NOTE | 2023-05-06 10:32 | P.PN_ITS ---
Subjective Subjective: No acute events overnight. Patient has remained hemodynamically stable and afebrile. Today morning seen sitting up in chair. States feeling a lot better than when he came in. Heart rate better controlled. Cardizem drip has been turned off. Mostly heart rate running in low to high 90s at rest. Remains on room air. Blood work appreciated for worsening anemia with hemoglobin down to 6.6, INR 1.5, CMP stable with A1c of 6.7, iron deficiency, therapeutic digoxin levels today. Vitals/I&O/Wt Last Vital Signs Temp 98.5 F 05/06/23 09:36 Pulse 90 05/06/23 09:36 Resp 24 H 05/06/23 09:36 BP 128/93 05/06/23 09:36 Pulse Ox 96 05/06/23 09:36 O2 Del Method Room Air 05/06/23 08:00 O2 Flow Rate 3 05/06/23 01:23 05/05/23 05/06/23 05/06/23 22:59 06:59 14:59 Intake Total 1410.000 / 1410.000 32.417 / 1442.417 463 / 463 Balance 1410.000 / 1410.000 32.417 / 1442.417 463 / 463 Weight last 48 hrs Weight 105.687 kg Weight 99.79 kg Physical Exam Narrative: General: No acute distress, AO x3, telangiectasia present on her left HEENT: PERRLA, pupils bilaterally equal and reactive Chest: Normal vesicular breath sounds, no added sounds, equal good air entry bilaterally CVS: S1-S2 irregularly irregular, soft pansystolic murmur at apex,tachycardia, no gallops, no rubs Abdomen: Soft, nontender, no organomegaly, bowel sounds present Neuro: No focal deficits, no facial deformity, AO x3, power 5/5 in all limbs Data 05/06/23 05:48 05/06/23 05:48 Micro: Microbiology 05/06/23 04:15 Occult Blood (FIT) - Final Stool A&P Assessment and plan (1) Atrial fibrillation with RVR: Most likely in setting of noncompliance with oral digoxin and metoprolol for last couple of weeks. Digoxin level is therapeutic today. Continue with home dose of digoxin 125 mcg daily. Continue with home dose of metoprolol 50 mg twice daily. Takes Xarelto at home. Hold off for now given anemia. TSH stable. Echocardiogram awaited. (2) Anemia: As per patient no active signs of bleeding. 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 Cannot rule out slow lower GI bleed secondary to telangiectases. Blood work appreciated for iron deficiency, stable normal vitamin B12 and folate levels. Start on oral iron supplementation. Transfused 2 unit of PRBC to keep hemoglobin over 8. IV Lasix around blood transfusion. Continue with IV Protonix, Carafate ACHS. Clear liquid diet. Consult surgery for possible EGD and colonoscopy. (3) Non-ischemic cardiomyopathy: Chronic history. Last echocardiogram in August 2023 showed EF of 35 to 40%, moderately increased RA size, mildly increased LA size, PASP of 24 mmHg, moderate TR. (4) Congestive heart failure with cardiomyopathy: Currently euvolemic. Continue to monitor. (5) COPD (chronic obstructive pulmonary disease): Xopenex as needed. No exacerbation for now. Qualifiers: COPD type: emphysema Emphysema type: panlobular Qualified Code(s): J43.1 - Panlobular emphysema (6) Abdominal aneurysm without mention of rupture: Repeat abdominal ultrasound. Last ultrasound from 2019. (7) Benign essential HTN: Goal blood pressure less than 140/90 mmHg. Mean over 65. Continue home dose of metoprolol. Hold off on BRITTA inhibitor for now. (8) Serum digoxin level below therapeutic range: Therapeutic now. Reloaded. Continue with home dose of digoxin for now. Plan Type 2 diabetes mellitus: Noncompliant to medication recently. A1c 6.7 Carb consistent cardiac diet. Sliding scale. CODE STATUS: Discussed in detail with the patient. Full code. His Cheryl will be the DPOA. Clear liquid carb consistent diet. Protonix twice daily Hold off on Xarelto given acute anemia, SCDs. Attestations Medical Necessity Statement*: Requires further hospitalization for management of acute anemia while GI bleed is ruled out in setting of chronic anticoagulation with Xarelto for atrial fibrillation, resolved rapid ventricular rate, nonischemic congestive heart f ailure Diagnoses Atrial fibrillation with RVR I48.91 Anemia D64.9 Non-ischemic cardiomyopathy I42.8 Congestive heart failure with cardiomyopathy I50.9; I42.9 COPD (chronic obstructive pulmonary disease) J43.1 COPD type: emphysema Emphysema type: panlobular Abdominal aneurysm without mention of rupture I71.4 Benign essential HTN I10 Serum digoxin level below therapeutic range R78.89
--- NOTE | 2023-05-06 10:36 | USCV_ITS ---
Nahum Armstrong Age: 82 Gender: M : 1940 Exam Date: 05/06/2023 11:24 Ordering Phys: Renzo Frias MD Technologist: Solomon Stein Exam Location: [facility] [place] Indication: nstemi BP: 143 / 82 HR: 87 Rhythm: Sinus Technical Quality: Adequate MEASUREMENTS (Male / Female) Normal Values 2D ECHO LV Diastolic Diameter PLAX 5.5 cm 4.2 - 5.9 / 3.9 - 5.3 cm LV Systolic Diameter PLAX 4.5 cm IVS Diastolic Thickness 1.2 cm 0.6 - 1.0 / 0.6 - 0.9 cm IVS Systolic Thickness 1.8 cm LVPW Diastolic Thickness 1.5 cm 0.6 - 1.0 / 0.6 - 0.9 cm LVPW Systolic Thickness 1.7 cm LVOT Diameter 2.0 cm LV Ejection Fraction 2D Teich 32.2 % LV Ejection Fraction MOD 2C 32.7 % LV Ejection Fraction 2C AL 33.9 % LA Diameter 4.7 cm IVC Diameter 2.7 cm M-MODE Aortic Annulus Diameter 3.7 cm LA Ao Ratio MM 1.2 MV E Point Septal Separation 1.3 cm DOPPLER AV Peak Velocity 143.0 cm/s LVOT Peak Velocity 75.0 cm/s AV Area Cont Eq vti 2.1 cm squared AV Area Cont Eq pk 1.7 cm squared MV Area PHT 5.0 cm squared Mitral E to A Ratio 3.1 MV E' Velocity 45.0 cm/s Mitral E to MV E' Ratio 6.2 Mitral E to LV E' Lateral Ratio 6.1 Mitral E to LV E' Septal Ratio 6.3 TR Peak Velocity 185.5 cm/s TR Peak Gradient 13.8 mmHg TR Mean Velocity 0.0 cm/s TR Mean Gradient 0.0 mmHg TR Velocity Time Integral 0.0 cm TV Peak E Velocity 82.0 cm/s Right Atrial Pressure 3.0 mmHg Pulmonary Artery Systolic Pressu 16.8 mmHg RV Acceleration Time 0.1 s FINDINGS Left Ventricle Left ventricle is dilated. LV systolic function is moderate to severely reduced with EF of 30 to 35%. Moderate to severe global hypokinesis seen. Right Ventricle Normal in size and function Right Atrium Normal in size Left Atrium Normal in size Mitral Valve Mild mitral regurgitation. Aortic Valve Moderate to severe aortic calcification. No significant stenosis or regurgitation noted with Tricuspid Valve Trace tricuspid regurgitation. Insufficient TR jet to calculate RVSP Pulmonic Valve Not well visualized Pericardium Normal Aorta Normal in size IVC Dilated CONCLUSIONS Left ventricle is dilated. LV systolic function is moderate to severely reduced with EF of 30 to 35%. Mild mitral regurgitation Trace tricuspid regurgitation. Dilated IVC Compared to prior echocardiogram from 2020, LV systolic function has decreased further and is 30-35% compared to 35-40% on prior study. Montez Miller MD (Electronically Signed) Final Date: 06 May 2023 17:41 S
[2023-05-06] MEDS: docusate sodium 100 mg Capsule 400 MG PO (10:39)
[2023-05-06] MEDS: peg /e-lyte soln 4,000 mL Btl 4000 ML PO (10:39)
[2023-05-06] MEDS: metoprolol tartrate 25 mg Tablet PO (10:39)
--- NOTE | 2023-05-06 10:54 | PC.CHAP ---
Pastoral Care Encounter/Spiritual Assessment Type of Contact [] Declined supervisor corduroy cutting visit [] Patient/Family/Request visit [] Outpatient visit [] Follow-up visit [] Physician referral [] Code/Alert [x] Routine visit [] Staff referral [] Actively dying [] Patient sleeping [] Family support [] [] Out of room [] Palliative care [] [x] Receiving care in room [] Pre-surgical visit [] Trauma [] Long length of stay [] ICU visit [] Other: Relational/Emotional Strength [x] Patient feels connected with others/family/visitors/staff [] Distress [] Loneliness/isolation [] Abandonment Spirituality of Patient [x] Person of Georgina [] Attends Zoroastrian of their Georgina [x] Believes in Prayer [] Reads Bible or Presybeterian materials [] There are Spiritual issues to be addressed Senior Design Engineering Specialist Interventions [] Prayer [] Active listening [x Non-anxious presence [] Spiritual/emotional support [] Crisis/trauma care [] Spiritual counseling [] Bereavement support [] Provided bereavement packet [] Provided Bible/devotional materials [] Provided toy/stuffed animal, coloring book to patient or family member [] Provided Communion [] Anointing/[place] [] Salvation [x] Completed spiritual assessment [] Other: Impact on Illness or Injury [] Angry [] Fearful [] Anxious [] Often cries [] Exhaustion [] Unable to work [] Unable to attend yazidi [] Unable to walk/stand [] Unable to read [] Unable to drive [] Unable to eat/drink [] Unable to sleep [] Unable to be with family [] Patient intubated [] Other: Summary dealing with the heart waiting doctors report has a good attitude well go home Time spent with patient 10 mins
[2023-05-06 11:13] LABS: Glucose Point of Care 121 mg/dL (70-110)
--- NOTE | 2023-05-06 15:19 | USCV_ITS ---
Nahum Armstrong Age: 82 Gender: M : 1940 Exam Date: 05/06/2023 07:47 Ordering Phys: Renzo Frias MD Technologist: Solomon Stein Exam Location: [facility] [place] Indication: aaa HISTORY: aaa Diameter (cm) AP x Transverse x Length Velocity (cm/s) Waveform Prox Aorta: 2.79 x 3.19 x 112.30 Biphasic Mid Aorta: 2.92 x 3.18 x 97.00 Biphasic Distal Aorta: 3.27 x 3.72 x 131.70 Biphasic Right Iliac Prox: 1.57 x 1.78 x 119.20 Biphasic Left Iliac Prox: 1.48 x 1.58 x Biphasic Stent Prox Landing x x Aneurysmal Sac Max x x Lt Lat Sac Dim Rt Lat Sac Dim Stent Dist Landing x x Right Iliac Stent x x Left Iliac Stent x x Right Renal Art Left Renal Art FINDINGS: comparison 09/04/20 CONCLUSIONS AAA measuring 3.3 x 3.7cm slightly increased compared to previous measuring 3.1 x 3.1cm Ectatcic common iliac arteries bilaterally Mild to moderate atheromatous plaque abdominal aorta Diaz Harden MD (Electronically Signed) Final Date: 10 May 2023 10:10 S
[2023-05-06 17:24] LABS: Glucose Point of Care 139 mg/dL (70-110)
--- NOTE | 2023-05-06 17:28 | P.CONIM_ITS ---
Providers/Reason For Consult Consulting Physician/Specialty*: Dr. Chele Jennings, DO/General surgery Reason for Consult*: Anemia Attending Physician: Renzo Frias MD Primary Care Provider: Mariola Ballesteros MD History of Present Illness History of Present Illness Nahum Armstrong is a 82 year old male who presented to the hospital with severe anemia. He was found to have oral telangiectasias and the hospitalist was concerned for possible GI bleeding. Patient reports she has no abdominal pain, nausea, emesis, diarrhea, constipation, hematochezia and/or melena. He denies any family history of colon cancer. His last colonoscopy was greater than 10 years ago and was reportedly within normal limits. Review of Systems General: Reports: 10 or more systems reviewed and unremarkable except in HPI and below Medications/Allergies Home Medications Medication Instructions Recorded Confirmed Last Taken Type metformin 500 mg tablet 500 mg PO BID 30 days #60 tabs 12/22/19 05/05/23 10 Days Ago Rx ~04/25/23 digoxin 125 mcg (0.125 mg) tablet 125 mcg PO DAILY 08/07/20 05/05/23 1 Week Ago History ~04/28/23 not had in a week alogliptin 25 mg tablet 25 mg PO QAM 05/05/23 05/05/23 3 Weeks Ago History ~04/14/23 not taken in 3 weeks aspirin 325 mg tablet 650 mg PO .EVERY 2 WEEKS 05/05/23 05/05/23 Unknown History benazepril 5 mg tablet 5 mg PO QAM 05/05/23 05/05/23 3 Weeks Ago History ~04/14/23 not had in 3 weeks cholecalciferol (vitamin D3) 25 3,000 unit PO DAILY 05/05/23 05/05/23 2 Weeks Ago History mcg (1,000 unit) tablet (Vitamin ~04/21/23 D3) furosemide 40 mg tablet 40 mg PO DAILY PRN Edema 05/05/23 05/05/23 1 Month Ago History ~04/04/23 loratadine 10 mg tablet (Claritin) 10 mg PO DAILY PRN Allergy Symptoms 05/05/23 05/05/23 Unknown History metoprolol tartrate 50 mg tablet 50 mg PO BID 05/05/23 05/05/23 2 Weeks Ago H istory ~04/21/23 not had in 2 weeks omeprazole magnesium 20 mg 10 mg PO DAILY PRN Acid Reflux 05/05/23 05/05/23 Unknown History tablet,delayed release (Prilosec OTC) rivaroxaban 20 mg tablet (Xarelto) 20 mg PO BEDTIME 05/05/23 05/05/23 05/04/23 History rosuvastatin 20 mg tablet (Crestor) 10 mg PO QPM 05/05/23 05/05/23 05/04/23 History Allergies Allergy/AdvReac Type Severity Reaction Status Date / Time No Known Allergies Allergy Verified 04/30/21 09:35 Current Medications Generic Name Dose Route Start Last Admin Trade Name Freq PRN Reason Stop Dose Admin Atorvastatin Calcium 40 mg 05/05/23 18:00 05/05/23 17:35 Atorvastatin 40 Mg Tablet PO 40 mg QPM LOY Administration Digoxin 125 mcg 05/06/23 09:00 05/06/23 09:11 Digoxin 125 Mcg Tablet PO 125 mcg DAILY LOY Administration Insulin Human Lispro 0 unit 05/05/23 18:00 05/06/23 11:15 Insulin Lispro 100 Unit/1 Ml SUBCUT Not Given WM&BEDTIME LOY Protocol Metoprolol Tartrate 25 mg 05/05/23 18:00 05/06/23 09:10 Metoprolol Tartrate 50 Mg Tablet PO 25 mg BID LOY Administration Pantoprazole Sodium 40 mg 05/05/23 13:30 05/06/23 02:29 Pantoprazole 40 Mg Sdv IVP 40 mg Q12H LOY Administration Sucralfate 1 gm 05/06/23 11:00 05/06/23 12:01 Sucralfate 1 Gm Tablet PO Not Given AC&BEDTIME LOY PFSH Acute PFSH: Medical History Abdominal aneurysm without mention of rupture Benign essential HTN Chronic atrial fibrillation Coreg Chronic episodic atrial fibrillation Congestive heart failure with cardiomyopathy COPD (chronic obstructive pulmonary disease) Diabetes mellitus, type II Dyslipidemia Hyperlipidemia Hypertension Non-ischemic cardiomyopathy EF 25-30% 2017, on ACEI Surgical History History of tonsillectomy Family History Other CAD (coronary artery disease) CHF (congestive heart failure) Cancer Social History (Reviewed 05/06/23 @ 17:29 by CANDELARIO Hernández Smoking and tobacco status: former smoker Alcohol intake: never Substance/Drug Use: never Caregiver/support person: Yes Lives independently: Yes Household members: spouse and children Marital status: Vitals/I&O/Wt Last Vital Signs Temp 97.8 F 05/06/23 16:00 Pulse 88 05/06/23 17:13 Resp 25 H 05/06/23 16:00 BP 139/89 05/06/23 16:00 Pulse Ox 93 05/06/23 16:00 O2 Del Method Room Air 05/06/23 16:00 O2 Flow Rate 3 05/06/23 01:23 05/06/23 05/06/23 05/06/23 06:59 14:59 22:59 Intake Total 32.417 / 9780.768 0146 / 2713 250 / 2963 Balance 32.417 / 8880.220 4983 / 2713 250 / 2963 Weight last 48 hrs Weight 233 lb Weight 220 lb Physical Exam Narrative: General : Patient is well developed , no acute distress, oriented x3 Head : Normal cephalic, a-traumatic. Ears : Pinnae and external canal are normal. Hearing is normal. Eyes : PERRLA, Sclera and injection are normal. No conjunctival discharge. Nose : Mucous membranes are without erythema. Throat : buccal mucosa is normal, gums are without significant recession or hypertrophy. Lungs : Equal chest rise bilaterally, no use of accessory muscles, trachea is midline. Cor : Rate and rhythm are normal. Abdomen : Soft, ND, NT, no g/r/m Extremities : No edema, no cyanosis or clubbing, dorsalis pedis pulses are present bilaterally, non-tender to palpation of calves. Upper extremities are normal bilaterally. Back : non-tender to palpation, no CVA tenderness. Neuro : CN II - XII intact, Upper and lower extremities have equal and full strength Data 05/06/23 05:48 05/06/23 05:48 Micro: Microbiology 05/06/23 04:15 Occult Blood (FIT) - Final Stool A&P Assessment and plan (1) Anemia: Plan EGD Colonoscopy The risks and benefits of the procedure, including bleeding, infection, intestinal perforation requiring surgery, missed lesion were explained to the patient. The patient is understanding of the risks and wishes to proceed. Coding Level of Care Code 47630 Diagnoses Anemia D64.9
[2023-05-06] MEDS: sucralfate 1 gm Tablet PO ×2 (17:58→21:02)
[2023-05-06] MEDS: atorvastatin 40 mg Tablet PO (18:18)
[2023-05-06 20:44] LABS: Glucose Point of Care 124 mg/dL (70-110)
[2023-05-07] VITALS (15 sets, daily range): BP systolic 102–135; BP diastolic 62–89; PULSE 74–126; RESP 12–27; TEMP 36.3–37.3; O2SAT 88–96
[2023-05-07] MEDS: pantoprazole 40 mg SDV IVP ×2 (00:50→12:36)
[2023-05-07 05:39] LABS: Basophils # 0.1 10^3/uL (0.0-0.1); Basophils % 1.4 %; Eosinophils # 0.2 10^3/uL (0.0-0.8); Eosinophils % 2.9 %; Hematocrit 29.4 % (42.0-52.0); Hemoglobin 8.6 g/dL (11.7-16.6); Lymphocytes # 1.4 10^3/uL (0.8-4.8); Lymphocytes % 19.6 %; Mean Corpuscular HGB Conc 29.3 g/dL (30.0-36.0); Mean Corpuscular Hemoglobin 23.4 pg (28.0-34.0); Mean Corpuscular Volume 80.1 fl (80-94); Mean Platelet Volume 8.7 fL (7.4-10.4); Monocytes # 0.8 10^3/uL (0.2-0.9); Monocytes % 10.4 %; Neutrophils # 4.69 10^3/uL (1.8-7.7); Neutrophils % 65.4 %; Nucleated Red Blood Cells % 0.4 %; Platelet Count 246 10^3/cmm (130-400); Red Blood Count 3.67 10^6/uL (4.1-5.3); Red Cell Distribution Width 16.6 % (12.1-15.1); White Blood Count 7.2 10^3/uL (4.0-10.0)
[2023-05-07 06:00] LABS: Alanine Aminotransferase 8 U/L (0-41); Albumin Level 3.3 g/dL (3.5-5.2); Alkaline Phosphatase 82 U/L (40-130); Anion Gap 13.2 (5-19); Aspartate Amino Transferase 14 U/L (0-40); Blood Urea Nitrogen 11 mg/dL (8-23); Calcium 8.4 mg/dL (8.5-10.5); Carbon Dioxide 26 mmol/L (22-29); Chloride 105 mmol/L (98-107); Globulin 2.9 g/dL (1.3-4.6); Glucose 108 mg/dL (65-115); Osmolality Calculated 290 mOsm/kg (285-295); Potassium 4.2 mmol/L (3.5-5.1); Sodium 140 mmol/L (136-145); Total Bilirubin 1.2 mg/dL (0.15-1.2); Total Protein 6.2 g/dL (6.6-8.7)
[2023-05-07 06:35] LABS: Glucose Point of Care 123 mg/dL (70-110)
--- NOTE | 2023-05-07 08:24 | ANES.PREANE2 ---
Pre-Anesthetic Assessment Height/Weight: Height 1.83 m Weight 106.254 kg Temp Pulse Resp BP Pulse Ox O2 Del Method O2 Flow Rate 97.6 F 104 H 17 129/82 92 Room Air 3 05/07/23 08:13 05/07/23 08:13 05/07/23 08:13 05/07/23 08:13 05/07/23 08:13 05/07/23 08:13 05/06/23 01:23 Operation Date: 05/07/23 09:00 Proposed Procedures p EGD(Not Applicable) - Chele Jennings DO s Colonoscopy(Not Applicable) - Chele Jennings DO Familial anesthetic complications: maria del rosario Last intake: Intake Last Liquid Date 05/06/23 Last Liquid Time 22:00 Last Solid Date 05/05/23 Last Solid Time 19:00 Exam alert, oriented x 3, clear to auscultation bilaterally and regular rate & rhythm Airway Dentition: other Pulmonary Chronic Obstructive Pulmonary Disease CV/HEM Atrial Fibrillation and Congestive Heart Failure Metabolic Diabetes Mellitus and Hyperlipidemia Anesthetic Plan ASA status: 4 Anesthesia: MAC Risk of > 500 ml blood loss (7ml/kg in children): No Medications/Allergies Home Medications Medication Instructions Recorded Confirmed Last Taken Type metformin 500 mg tablet 500 mg PO BID 30 days #60 tabs 12/22/19 05/05/23 10 Days Ago Rx ~04/25/23 digoxin 125 mcg (0.125 mg) tablet 125 mcg PO DAILY 08/07/20 05/05/23 1 Week Ago History ~04/28/23 not had in a week alogliptin 25 mg tablet 25 mg PO QAM 05/05/23 05/05/23 3 Weeks Ago History ~04/14/23 not taken in 3 weeks aspirin 325 mg tablet 650 mg PO .EVERY 2 WEEKS 05/05/23 05/05/23 Unknown History benazepril 5 mg tablet 5 mg PO QAM 05/05/23 05/05/23 3 Weeks Ago History ~04/14/23 not had in 3 weeks cholecalciferol (vitamin D3) 25 3,000 unit PO DAILY 05/05/23 05/05/23 2 Weeks Ago History mcg (1,000 unit) tablet (Vitamin ~04/21/23 D3) furosemide 40 mg tablet 40 mg PO DAILY PRN Edema 05/05/23 05/05/23 1 Month Ago History ~04/04/23 loratadine 10 mg tablet (Claritin) 10 mg PO DAILY PRN Allergy Symptoms 05/05/23 05/05/23 Unknown History metoprolol tartrate 50 mg tablet 50 mg PO BID 05/05/23 05/05/23 2 Weeks Ago History ~04/21/23 not had in 2 weeks omeprazole magnesium 20 mg 10 mg PO DAILY PRN Acid Reflux 05/05/23 05/05/23 Unknown History tablet,delayed release (Prilosec OTC) rivaroxaban 20 mg tablet (Xarelto) 20 mg PO BEDTIME 05/05/23 05/05/23 05/04/23 History rosuvastatin 20 mg tablet (Crestor) 10 mg PO QPM 05/05/23 05/05/23 05/04/23 History Allergies Allergy/AdvReac Type Severity Reaction Status Date / Time No Known Allergies Allergy Verified 04/30/21 09:35 Current Medications Generic Name Dose Route Start Last Admin Trade Name Freq PRN Reason Stop Dose Admin Atorvastatin Calcium 40 mg 05/05/23 18:00 05/06/23 18:18 Atorvastatin 40 Mg Tablet PO 40 mg QPM LOY Administration Digoxin 125 mcg 05/06/23 09:00 05/06/23 09:11 Digoxin 125 Mcg Tablet PO 125 mcg DAILY LOY Administration Insulin Human Lispro 0 unit 05/05/23 18:00 05/07/23 07:03 Insulin Lispro 100 Unit/1 Ml SUBCUT Not Given WM&BEDTIME LOY Protocol Metoprolol Tartrate 25 mg 05/05/23 18:00 05/06/23 18:18 Metoprolol Tartrate 50 Mg Tablet PO 25 mg BID LOY Administration Pantoprazole Sodium 40 mg 05/05/23 13:30 05/07/23 00:50 Pantoprazole 40 Mg Sdv IVP 40 mg Q12H LOY Administration Sucralfate 1 gm 05/06/23 11:00 05/07/23 06:09 Sucralfate 1 Gm Tablet PO Not Given AC&BEDTIME LOY PFSH Anesthesia Medical History Abdominal aneurysm without mention of rupture Benign essential HTN Chronic atrial fibrillation Coreg Chronic episodic atrial fibrillation Congestive heart failure with cardiomyopathy COPD (chronic obstructive pulmonary disease) Diabetes mellitus, type II Dyslipidemia Hyperlipidemia Hypertension Non-ischemic cardiomyopathy EF 25-30% 2017, on ACEI Surgical History History of tonsillectomy Family History Other CAD (coronary artery disease) CHF (congestive heart failure) Cancer Social History Smoking and tobacco status: former smoker Alcohol intake: never Substance/Drug Use: never Caregiver/support person: Yes Lives independently: Yes Household members: spouse and children Marital status: Data Anesthesia 05/07/23 05:26 05/07/23 05:26 Short CBC 05/05/23 05/06/23 05/07/23 Range/Units 11:53 05:48 05:26 WBC 5.8 7.1 7.2 (4.0-10.0) 10^3/uL Hgb 7.3 L 6.6 L 8.6 L D (11.7-16.6) g/dL Hct 26.8 L 23.7 L 29.4 L (42.0-52.0) % MCV 80.7 81.2 80.1 (80-94) fl Plt Count 320 270 246 (130-400) 10^3/cmm Neut % (Auto) 62.9 61.9 65.4 % Neut # (Auto) 3.62 4.37 4.69 (1.8-7.7) 10^3/uL BMP 05/05/23 05/06/23 05/07/23 11:53 05:48 05:26 Sodium 137 140 140 Potassium 4.4 4.6 4.2 Chloride 103 107 105 Carbon Dioxide 24 25 26 BUN 16 14 11 Creatinine 0.8 0.8 0.7 Glucose 181 H 117 H 108 Calcium 8.3 L 8.5 8.4 L Cardiac Enzymes 05/05/23 05/05/23 05/05/23 Range/Units 11:53 11:53 13:20 Troponin T Baseline 23 H (0-15) ng/L Troponin T 120 Minute 17.95 H (0-15) ng/L Delta Troponin T -5.05 L (0-10) ABS# Troponin T Hi Sens 6Hr (0-15) ng/L Troponin T Hi Sens 6Hr Delta (0-12) ng/L NT-Pro-B Natriuret Pep 1301 H (0-450) pg/mL 05/05/23 Range/Units 17:57 Troponin T Baseline (0-15) ng/L Troponin T 120 Minute (0-15) ng/L Delta Troponin T (0-10) ABS# Troponin T Hi Sens 6Hr 24.15 H (0-15) ng/L Troponin T Hi Sens 6Hr Delta 1.15 (0-12) ng/L NT-Pro-B Natriuret Pep (0-450) pg/mL Liver Function 05/05/23 05/06/23 05/07/23 Range/Units 11:53 05:48 05:26 Total Bilirubin 0.4 0.5 1.2 (0.15-1.2) mg/dL AST 14 13 14 (0-40) U/L ALT 8 6 8 (0-41) U/L Alkaline Phosphatase 90 80 82 (40-130) U/L Albumin 4.0 3.4 L 3.3 L (3.5-5.2) g/dL Urine 05/06/23 Range/Units 04:15 Urine Color Yellow (Yellow) Urine Appearance Clear (CLEAR) Urine pH 5 (5-7) Ur Specific [place] 1.025 (1.005-1.030) Urine Protein Neg (Negative) Urine Glucose (UA) Norm (Normal) Urine Ketones Negative (Negative) Urine Nitrate Negative (Negative) Urine Bilirubin Neg (Negative) Ur Leukocyte Esterase Negative (Negative) Urine RBC 0-4 H (0-2) /hpf Urine WBC None (0-5) /hpf Blood Bank 05/05/23 12:55 Blood Type A Negative Rho(D) Type Negative Antibody Screen Negative Coags 05/05/23 05/06/23 11:53 05:48 PT 24.90 H 18.60 H INR 2.16 H 1.50 H Microbiology 05/06/23 04:15 Occult Blood (FIT) - Final Stool Cardiac Studies: Echocardiogram 05/06/23 Echocardiogram Ultrasound 09/04/20
[2023-05-07] MEDS: sodium chloride 0.9% 1,000 ML 30 ML IV (08:38)
--- NOTE | 2023-05-07 09:43 | PM.PN ---
Vitals/I&O/Wt Last Vital Signs Temp 97.6 F 05/07/23 08:13 Pulse 104 H 05/07/23 08:13 Resp 17 05/07/23 08:13 BP 129/82 05/07/23 08:13 Pulse Ox 92 05/07/23 08:13 O2 Del Method Room Air 05/07/23 08:13 O2 Flow Rate 3 05/06/23 01:23 05/06/23 05/07/23 05/07/23 22:59 06:59 14:59 Intake Total 798 / 3511 Balance 798 / 3511 Weight last 48 hrs Weight 234 lb 4 oz Weight 233 lb Weight 220 lb Data 05/07/23 05:26 05/07/23 05:26 A&P Assessment and plan (1) Anemia: Plan EGD Colonoscopy The risks and benefits of the procedure, including bleeding, infection, intestinal perforation requiring surgery, missed lesion were explained to the patient. The patient is understanding of the risks and wishes to proceed. Attestations Medical Necessity Statement*: Per primary Coding Level of Care Code Acute Code for Chg Fwd Diagnoses Anemia D64.9
--- NOTE | 2023-05-07 11:08 | CT_ITS ---
WS: [id number] CT HEAD NONCONTRAST HISTORY: post fall TECHNIQUE: Contiguous axial imaging performed through the brain in 3.0 mm imaging. Bone and soft tiss ue windows. Sagittal and coronal reformats reviewed. All CT scans at [facility] use at least one of these dose optimization techniques: automated exposure control; mA and/or kV adjustment per pa tient size (includes targeted exams where dose is matched to clinical indication); or iterative recon struction. DLP: 1156.85 mGy.cm COMPARISON: None available. No acute intracranial hemorrhage, midline shift or mass effect. Mild atrophy and moderate small vessel ischemic changes are confluent surrounding the ventricles. Mod erate volume loss in the temporal lobes. There are small lacunar infarcts in the basal ganglia and al ramon the external capsules. Mild cerebellar atrophy. Ventricles: Mild ventriculomegaly on the basis of atrophy. Paranasal sinuses: As visualized are clear. Mastoid air cells: Well pneumatized. Calvarium and scalp: Skull is intact with no soft tissue edema or swelling. CT/CT head wo con* [id number] IMPRESSION: 1. No acute intracranial hemorrhage or edema. 2. Mild atrophy with moderate small vessel ischemic changes and small bilatera l lacunar infarcts in the basal ganglia. 3. Mild ventriculomegaly on the basis of atrophy.
--- NOTE | 2023-05-07 11:39 | PC.NURSE ---
pt arrived from procedure at 1039 to recovery room pt awoke from procedure shortly after arrival and stated he needed to use the bathroom. pt was informed he needed to wake up more before attempting to ambulate pt was offered a urinal but pt declined a short time later the pt was trying to climb out the end of the bed to use the bathroom. this nurse then unhooked the pt from the iv tubing and blood pressure cuff and asked the pt to sit in the bed and that the move to the bathroom would be done slowly pt stood up with assistance by this nurse and ambulated well to the bathroom area when the pt made the turn to sit on the toilet he bent to sit down but fell forward instead this nurses leg broke most of the pt fall pt hit the floor and struck the right side of his forehead and received an abrasion on the right knee. Dr. Jennings assisted pt to sit on the toilet. warehouse traffic supervisor came and it was determined to send the pt to CT and then to return to his room. report was given to the floor nurse about the pt fall
--- NOTE | 2023-05-07 12:01 | ANE.PACU2 ---
Inpatient post-anesthesia follow up: Airway intact: Yes Vital signs: Temperature 99.2 F Pulse Rate 126 Respiratory Rate 27 Blood Pressure 122/76 Pulse Oximetry 88 Oxygen Delivery Me thod Room Air Oxygen Flow Rate 3 Fraction of Inspir ed Oxygen Hydration adequate: Yes Nausea and vomiting: No Pain level: 1 Mental status: Baseline
[2023-05-07] MEDS: digoxin 125 mcg Tablet PO ×2 (12:35→14:16)
[2023-05-07] MEDS: metoprolol tartrate 50 mg Tablet PO ×2 (12:36→17:33)
[2023-05-07 12:49] LABS: Glucose Point of Care 133 mg/dL (70-110)
--- NOTE | 2023-05-07 13:32 | P.PN_ITS ---
Subjective Subjective: No acute events overnight. Patient's heart rate had remained stable. Patient continued to do well on room air. Patient underwent EGD and colonoscopy today. On EGD he was found using duodenal ulcer, no gastritis along with nonbleeding esophageal varices. Colonic polyps which were taken for biopsy. On review of medications patient did not get morning dose of metoprolol and digoxin prior to the endoscopy. In the GI lab while coming from the endoscopy suite on trying to stand up patient fell and hit his head. CT head was done which was negative for acute abnormality. When seen back in the room patient was awake and alert without any complaints. He states he fell because he stood too fast and tried to turn. Denies any nausea, vomiting, headache. Heart rate slightly elevated running in the 110s. Overnight heart rate has remained stable. Hemodynamically stable otherwise. Blood work showed hemoglobin improving 8.6 after ~blood transfusion, stable CMP. Digoxin level of 1. Vitals/I&O/Wt Last Vital Signs Temp 99.2 F 05/07/23 11:58 Pulse 114 H 05/07/23 12:35 Resp 27 H 05/07/23 11:58 BP 122/76 05/07/23 11:58 Pulse Ox 88 L 05/07/23 11:58 O2 Del Method Room Air 05/07/23 11:58 O2 Flow Rate 3 05/06/23 01:23 05/06/23 05/07/23 05/07/23 22:59 06:59 14:59 Intake Total 798 / 3511 700 / 700 Balance 798 / 3511 700 / 700 Weight last 48 hrs Weight 106.254 kg Weight 105.687 kg Physical Exam Narrative: General: No acute distress, AO x3, telangiectasia present on lower lip on left, pallor present HEENT: PERRLA, pupils bilaterally equal and reactive Chest: Normal vesicular breath sounds, no added sounds, equal good air entry bi laterally CVS: S1-S2 irregularly irregular, soft pansystolic murmur at apex,tachycardia, no gallops, no rubs Abdomen: Soft, nontender, no organomegaly, bowel sounds present Neuro: No focal deficits, no facial deformity, AO x3, power 5/5 in all limbs Data 05/07/23 05:26 05/07/23 05:26 A&P Assessment and plan (1) Atrial fibrillation with RVR: Most likely in setting of noncompliance with oral digoxin and metoprolol for last couple of weeks. Digoxin level is therapeutic today. Still patient tachycardic on missing 1 dose. Increase digoxin dose to 250 mcg daily. Continue metoprolol 50 mg twice daily. Repeat digoxin levels in AM. Most likely will ask for repeat digoxin level in 1 week. Restart Xarelto as no active bleeding seen. Repeat echocardiogram shows persistent EF of 35%, moderate to severe global LV hypokinesia along with trace TR and mild MR, dilated IVC. (2) Anemia: Appreciate surgical recommendations. Post EGD and colonoscopy. Found to have feeling duodenal ulcer along with nonbleeding esophageal varices. Restart Xarelto. Post 2 unit of blood transfusion. Appropriate response. Continue with Protonix twice daily and Carafate before meals and at bedtime. Most likely will plan to discharge on Protonix twice daily for 4 weeks followed by daily along with Carafate ACHS for 4 weeks. (3) Non-ischemic cardiomyopathy: Chronic history. Appreciate echocardiogram as above. Start on daily Lasix. 40 mg today. Most likely will discharge on 20 mg oral daily. (4) Congestive heart failure with cardiomyopathy: (5) COPD (chronic obstructive pulmonary disease): Xopenex as needed. No exacerbation for now. We will plan to discharge on rescue inhaler. Qualifiers: COPD type: emphysema Emphysema type: panlobular Qualified Code(s): J43.1 - Panlobular emphysema (6) Abdominal aneurysm without mention of rupture: Repeat abdominal ultrasound. Last ultrasound from 2019. Ultrasound results still awaited. (7) Benign essential HTN: Goal blood pressure less than 140/90 mmHg. Mean over 65. Continue home dose of metoprolol. Hold off on BRITTA inhibitor for now. (8) Serum digoxin level below therapeutic range: Therapeutic now. Reloaded. Digoxin 250 mcg daily. Plan Type 2 diabetes mellitus: Noncompliant to medication recently. A1c 6.7 Carb consistent cardiac diet. Sliding scale. CODE STATUS: Discussed in detail with the patient. Full code. His Cheryl will be the DPOA. Clear liquid carb consistent diet. Protonix twice daily Hold off on Xarelto given acute anemia, SCDs. Discharge plan: Plan to discharge the next 24 hours on digoxin 250 mcg, metoprolol 50 mg twice daily, daily 20 mg oral Lasix, Protonix twice daily and Carafate 4 times a day for 4 weeks followed by Protonix daily along with continuation of all home medications Attestations Medical Necessity Statement*: Requires further hospitalization for management of anemia requiring EGD and colonoscopy, blood transfusion, A-fib with RVR secondary to noncompliance with medication Diagnoses Atrial fibrillation with RVR I48.91 Anemia D64.9 Non-ischemic cardiomyopathy I42.8 Congestive heart failure with cardiomyopathy I50.9; I42.9 COPD (chronic obstructive pulmonary disease) J43.1 COPD type: emphysema Emphysema type: panlobular Abdominal aneurysm without mention of rupture I71.4 Benign essential HTN I10 Serum digoxin level below therapeutic range R78.89
[2023-05-07] MEDS: FUROsemide 40 mg Tablet PO (14:15)
[2023-05-07] MEDS: ferrous gluconate 324 mg Tablet PO (17:32)
[2023-05-07] MEDS: sucralfate 1 gm Tablet PO ×2 (17:32→20:46)
[2023-05-07] MEDS: atorvastatin 40 mg Tablet PO (17:33)
[2023-05-07 17:37] LABS: Glucose Point of Care 132 mg/dL (70-110)
[2023-05-07] MEDS: rivaroxaban 10 mg Tablet 20 MG PO (20:46)
[2023-05-07] MEDS: insulin lispro 100 unit/1 mL SUBCUT (20:51)
[2023-05-07 21:02] LABS: Glucose Point of Care 162 mg/dL (70-110)
[2023-05-08] VITALS (10 sets, daily range): BP systolic 85–117; BP diastolic 58–82; PULSE 92–110; RESP 16–19; TEMP 36.6–37; O2SAT 91–96; BMI 31.7
[2023-05-08] MEDS: pantoprazole 40 mg SDV IVP ×2 (01:29→12:44)
[2023-05-08 03:35] LABS: Basophils # 0.1 10^3/uL (0.0-0.1); Basophils % 0.4 %; Eosinophils % 0.3 %; Hematocrit 30.1 % (42.0-52.0); Hemoglobin 8.9 g/dL (11.7-16.6); Lymphocytes # 1.6 10^3/uL (0.8-4.8); Lymphocytes % 13.5 %; Mean Corpuscular HGB Conc 29.6 g/dL (30.0-36.0); Mean Corpuscular Hemoglobin 23.5 pg (28.0-34.0); Mean Corpuscular Volume 79.6 fl (80-94); Mean Platelet Volume 8.9 fL (7.4-10.4); Monocytes # 1.3 10^3/uL (0.2-0.9); Monocytes % 10.6 %; Neutrophils # 8.88 10^3/uL (1.8-7.7); Neutrophils % 74.8 %; Nucleated Red Blood Cells % 0.2 %; Platelet Count 257 10^3/cmm (130-400); Red Blood Count 3.78 10^6/uL (4.1-5.3); Red Cell Distribution Width 17.4 % (12.1-15.1); White Blood Count 11.9 10^3/uL (4.0-10.0)
[2023-05-08 03:54] LABS: Alanine Aminotransferase 8 U/L (0-41); Albumin Level 3.5 g/dL (3.5-5.2); Alkaline Phosphatase 87 U/L (40-130); Anion Gap 14.8 (5-19); Aspartate Amino Transferase 21 U/L (0-40); Blood Urea Nitrogen 13 mg/dL (8-23); Calcium 8.3 mg/dL (8.5-10.5); Carbon Dioxide 27 mmol/L (22-29); Chloride 99 mmol/L (98-107); Globulin 3.1 g/dL (1.3-4.6); Glucose 153 mg/dL (65-115); Osmolality Calculated 287 mOsm/kg (285-295); Potassium 3.8 mmol/L (3.5-5.1); Sodium 137 mmol/L (136-145); Total Bilirubin 1.4 mg/dL (0.15-1.2); Total Protein 6.6 g/dL (6.6-8.7)
[2023-05-08] MEDS: sucralfate 1 gm Tablet PO ×3 (05:08→17:32)
[2023-05-08 06:45] LABS: Glucose Point of Care 164 mg/dL (70-110)
[2023-05-08] MEDS: levalbuterol 0.63 mg/3 mL Neb INHALATION (07:14)
[2023-05-08] MEDS: ferrous gluconate 324 mg Tablet PO ×2 (08:03→17:32)
[2023-05-08] MEDS: digoxin 125 mcg Tablet 250 MCG PO (08:03)
[2023-05-08] MEDS: insulin lispro 100 unit/1 mL SUBCUT ×3 (08:04→17:31)
[2023-05-08] MEDS: metoprolol tartrate 50 mg Tablet PO ×2 (08:04→17:32)
--- NOTE | 2023-05-08 09:03 | PC.SOCIAL ---
IMM update IMM updated with patient. Verbalized an understanding. Copy Pg 2 provided. Initialled, dated, timed, and placed in chart.
[2023-05-08] MEDS: magnesium hydroxide 30 mL UDC PO (10:45)
[2023-05-08 12:38] LABS: Glucose Point of Care 199 mg/dL (70-110)
--- NOTE | 2023-05-08 12:39 | P.DS_ITS ---
Discharge Providers Date of Admission: 05/05/23 13:51 Date of Discharge: May 08, 2023 Attending Provider at Admission: Renzo Frias MD Attending Provider at Discharge: Renzo Frias MD Primary Care Provider: Mariola Ballesteros MD Diagnoses at Discharge Discharge Diagnosis (1) Atrial fibrillation with RVR: Status: Acute (2) Anemia: Status: Acute (3) Non-ischemic cardiomyopathy: Status: Acute (4) Congestive heart failure with cardiomyopathy: Status: Acute (5) COPD (chronic obstructive pulmonary disease): Status: Acute Qualifiers: COPD type: emphysema Emphysema type: panlobular Qualified Code(s): J43.1 - Panlobular emphysema (6) Abdominal aneurysm without mention of rupture: Status: Acute (7) Benign essential HTN: Status: Acute (8) Serum digoxin level below therapeutic range: Status: Acute (9) Duodenal ulcer: Status: Acute (10) Varices of esophagus determined by endoscopy: Status: Acute Reason for Visit Reason for Visit: A Fib RVR Hospital Course Hospital Course Nahum Armstrong is a 82 year old male with past medical history of atrial fibrillation on metoprolol and digoxin, Xarelto for anticoagulation, nonischemic cardiomyopathy with a EF of around 30% 3 years ago, type 2 diabetes mellitus, abdominal aneurysm was sent in today from [facility] for elevated heart rate. In the ER patient was found to be in A-fib with RVR started on IV Cardizem along with oral digoxin of 125 mcg. As per patient he has not taken his oral medications including metoprolol, digoxin and and few others though has been taking his Xarelto regularly for last 10 days to 2 weeks as he ran out of medications and did not have many to get more.? Patient himself complains of palpitations but denies of having any dizziness, nausea, vomiting, chest pain, difficulty in breathing.? He states otherwise he feels at his baseline health.? He does complain of mild shortness of breath on exertion. Denies of having any hematemesis, melena, hematuria or bleeding from anywhere.? Does not know his baseline hemoglobin. He was admitted to the hospital further evaluation and management. On admission he was started on digoxin load and home dose of metoprolol. After reaching therapeutic level of digoxin's patient's heart rate improved. Patient continued to have anemia for which she required 2 unit of blood transfusion. Stool for occult blood was negative. Surgery was consulted and he underwent EGD and colonoscopy in 05/07 where he was found to have healing duodenal ulcer, nonbleeding esophageal varices along with colonic polyps for which biopsies were taken. Patient's hemoglobin remained stable. Echocardiogram was repeated which showed EF of 30 to 35% with persistent severe hypokinesia as below. Patient's hospitalization was otherwise unremarkable. He has been discharged in hemodynamically stable condition on oral Protonix twice daily for 4 weeks followed by once daily, Carafate 3 times a day for 4 weeks. His dose of digoxin has been increased to 250 mcg daily. He is to take Lasix 20 mg oral daily. He is to have repeat CBC, BMP and digoxin levels in 2 weeks with his primary care provider. Also medications were refilled. He is to continue taking his Xarelto as before. He is not to take aspirin anymore. Physical Exam Narrative: General: No acute distress, AO x3, telangiectasia present on lower lip on left, pallor present HEENT: PERRLA, pupils bilaterally equal and reactive Chest: Normal vesicular breath sounds, no added sounds, equal good air entry bilaterally CVS: S1-S2 irregularly irregular, soft pansystolic murmur at apex,tachycardia, no gallops, no rubs Abdomen: Soft, nontender, no organomegaly, bowel sounds present Neuro: No focal deficits, no facial deformity, AO x3, power 5/5 in all limbs Discharge Data Studies Completed and Pending Completed Studies During Hospitalization Category Date Time Status CT head wo con* [id number] Routine Cat Scan 05/07/23 11:08 Completed CXRP [XR chest 1V portable [id number]] Stat Exams 05/05/23 12:40 Completed CV. echo complete* [id number] Routine Ultrasound 05/06/23 10:36 Completed Pending at discharge Category Date Time Status Sputum Culture and Gram Stain Routine Lab 05/06/23 08:33 Results Pathology: Surgical [PTH] Routine Pth 05/07/23 10:38 Received CV duplex aorta [id number] Routine Ultrasound 05/06/23 15:19 Taken Radiology Impressions Chest X-Ray 05/05/23 12:40 IMPRESSION: 1. Probable left lower lobe infiltrate. Left basal pleural effusion. 2. Cardiac enlargement unchanged Head CT 05/07/23 11:08 IMPRESSION: 1. No acute intracranial hemorrhage or edema. 2. Mild atrophy with moderate small vessel ischemic changes and small bilateral lacunar infarcts in the basal ganglia. 3. Mild ventriculomegaly on the basis of atrophy. Echocardiogram: CONCLUSIONS ?Left ventricle is dilated.? LV systolic function is moderate to ?severely reduced with EF of 30 to 35%. ?Mild mitral regurgitation ?Trace tricuspid regurgitation. ?Dilated IVC ?Compared to prior echocardiogram from 2019, LV systolic function ?has decreased further and is 30-35% compared to 35-40% on prior ?study. ?Montez Miller MD ?(Electronically Signed) ?Final Date:? ? ? 06 May 2023 ? 17:41 Laboratory Results WBC 11.9 10^3/uL (4.0-10.0) H 05/08/23 03:17 RBC 3.78 10^6/uL (4.1-5.3) L 05/08/23 03:17 Hgb 8.9 g/dL (11.7-16.6) L 05/08/23 03:17 Hct 30.1 % (42.0-52.0) L 05/08/23 03:17 MCV 79.6 fl (80-94) L 05/08/23 03:17 MCH 23.5 pg (28.0-34.0) L 05/08/23 03:17 MCHC 29.6 g/dL (30.0-36.0) L 05/08/23 03:17 RDW 17.4 % (12.1-15.1) H 05/08/23 03:17 Plt Count 257 10^3/cmm (130-400) 05/08/23 03:17 MPV 8.9 fL (7.4-10.4) 05/08/23 03:17 Neut % (Auto) 74.8 % 05/08/23 03:17 Lymph % (Auto) 13.5 % 05/08/23 03:17 [place] % (Auto) 10.6 % 05/08/23 03:17 Eos % (Auto) 0.3 % 05/08/23 03:17 Baso % (Auto) 0.4 % 05/08/23 03:17 Neut # (Auto) 8.88 10^3/uL (1.8-7.7) H 05/08/23 03:17 Lymph # (Auto) 1.6 10^3/uL (0.8-4.8) 05/08/23 03:17 [place] # (Auto) 1.3 10^3/uL (0.2-0.9) H 05/08/23 03:17 Eos # (Auto) 0.0 10^3/uL (0.0-0.8) 05/08/23 03:17 Baso # (Auto) 0.1 10^3/uL (0.0-0.1) 05/08/23 03:17 Nucleated RBC % (auto) 0.2 % 05/08/23 03:17 Nucleated RBCs # 0.0 /100WBC 05/08/23 03:17 PT 18.60 SECONDS (12.1-14.9) H 05/06/23 05:48 INR 1.50 (0.8-1.2) H 05/06/23 05:48 Sodium 137 mmol/L (136-145) 05/08/23 03:17 Potassium 3.8 mmol/L (3.5-5.1) 05/08/23 03:17 Chloride 99 mmol/L (98-107) 05/08/23 03:17 Carbon Dioxide 27 mmol/L (22-29) 05/08/23 03:17 Anion Gap 14.8 (5-19) 05/08/23 03:17 BUN 13 mg/dL (8-23) 05/08/23 03:17 Creatinine 1.0 mg/dL (0.7-1.2) 05/08/23 03:17 GFR Calculation Not Reportable 05/08/23 03:17 Glucose 153 mg/dL (65-115) H 05/08/23 03:17 POC Glucose 199 mg/dL (70-110) H 05/08/23 12:34 Estimat Average Glucose 146 05/06/23 05:48 Hemoglobin A1c 6.7 % (4.0-6.0) H 05/06/23 05:48 Calculated Osmolality 287 mOsm/kg (285-295) 05/08/23 03:17 Calcium 8.3 mg/dL (8.5-10.5) L 05/08/23 03:17 Phosphorus 3.1 mg/dL (2.5-4.5) 05/06/23 05:48 Magnesium 1.9 mg/dL (1.7-2.3) 05/06/23 05:48 Iron 20 ug/dL (59-158) L 05/05/23 11:53 TIBC 516 mcg/dl 05/05/23 11:53 % Saturation 3.8 % (20-50) L 05/05/23 11:53 Unsat Iron Binding 496 ug/dL (112-347) H 05/05/23 11:53 Total Bilirubin 1.4 mg/dL (0.15-1.2) H 05/08/23 03:17 AST 21 U/L (0-40) 05/08/23 03:17 ALT 8 U/L (0-41) 05/08/23 03:17 Alkaline Phosphatase 87 U/L (40-130) 05/08/23 03:17 Troponin T Baseline 23 ng/L (0-15) H 05/05/23 11:53 Troponin T 120 Minute 17.95 ng/L (0-15) H 05/05/23 13:20 Delta Troponin T -5.05 ABS# (0-10) L 05/05/23 13:20 Troponin T Hi Sens 6Hr 24.15 ng/L (0-15) H 05/05/23 17:57 Troponin T Hi Sens 6Hr Delta 1.15 ng/L (0-12) 05/05/23 17:57 NT-Pro-B Natriuret Pep 1301 pg/mL (0-450) H 05/05/23 11:53 Total Protein 6.6 g/dL (6.6-8.7) 05/08/23 03:17 Albumin 3.5 g/dL (3.5-5.2) 05/08/23 03:17 Globulin 3.1 g/dL (1.3-4.6) 05/08/23 03:17 Triglycerides 92 mg/dL (0-150) 05/06/23 05:48 Cholesterol 68 mg/dL (0-200) 05/06/23 05:48 LDL Cholesterol, Calc 28 mg/dL (50-129) L 05/06/23 05:48 HDL Cholesterol 22 mg/dL (60-100) L 05/06/23 05:48 LDL/HDL Ratio 1.27 RATIO (0.00-3.22) 05/06/23 05:48 Cholesterol/HDL Ratio 3.09 mg/dL (1.0-5.00) 05/06/23 05:48 Vitamin B12 606 pg/mL (232-1245) 05/05/23 11:53 Folate 14.8 ng/mL (4.5-32.2) 05/06/23 05:48 TSH 3.53 uIU/mL (0.27-4.20) 05/05/23 11:53 Urine Color Yellow (Yellow) 05/06/23 04:15 Urine Appearance Clear (CLEAR) 05/06/23 04:15 Urine pH 5 (5-7) 05/06/23 04:15 Ur Specific [place] 1.025 (1.005-1.030) 05/06/23 04:15 Urine Protein Neg (Negative) 05/06/23 04:15 Urine Glucose (UA) Norm (Normal) 05/06/23 04:15 Urine Ketones Negative (Negative) 05/06/23 04:15 Urine Blood 2+ (Negative) H 05/06/23 04:15 Urine Nitrate Negative (Negative) 05/06/23 04:15 Urine Bilirubin Neg (Negative) 05/06/23 04:15 Urine Urobilinogen Neg mg/dL (Negative) 05/06/23 04:15 Ur Leukocyte Esterase Negative (Negative) 05/06/23 04:15 Urine RBC 0-4 /hpf (0-2) H 05/06/23 04:15 Urine WBC None /hpf (0-5) 05/06/23 04:15 Ur Squamous Epith Cells 0-4 /hpf (0-5) H 05/06/23 04:15 Calcium Oxalate Crystal 5-10 /hpf H 05/06/23 04:15 Amorphous Sediment Not Reportable 05/06/23 04:15 Urine Bacteria Trace /hpf (NONE) 05/06/23 04:15 Digoxin 1.0 ng/mL (0.6-1.2) 05/07/23 05:26 Blood Type A Negative 05/05/23 12:55 Rho(D) Type Negative 05/05/23 12:55 Antibody Screen Negative 05/05/23 12:55 Crossmatch See Detail 05/05/23 12:55 Vitals Last Vital Signs Temp 97.9 F 05/08/23 07:29 Pulse 110 H 05/08/23 08:03 Resp 18 05/08/23 07:29 BP 112/82 05/08/23 07:29 Pulse Ox 92 05/08/23 07:29 O2 Del Method Room Air 05/08/23 07:29 O2 Flow Rate 2 05/08/23 04:00 Discharge Plan Discharge Patient Disposition: Home Condition: Stable Prescriptions: New furosemide [Lasix] 20 mg tablet 20 mg PO DAILY Qty: 30 0RF pantoprazole [Protonix] 40 mg tablet,delayed release (DR/EC) 40 mg PO BID 90 Days Qty: 200 0RF Rx Instructions: Twice daily for next 4 weeks followed by once daily sucralfate [Carafate] 100 mg/mL suspension 1 g PO TID 28 Days Qty: 840 0RF fluticasone furoate-vilanterol [Breo Ellipta] 100-25 mcg/dose blister with device 1 inh inhalation DAILY Qty: 60 0RF Continued metformin 500 mg Tablet 500 mg PO BID 30 Days Qty: 60 0RF Claritin 10 mg Tablet 10 mg PO DAILY PRN (Reason: Allergy Symptoms) Crestor 20 mg Tablet 10 mg PO QPM Prilosec OTC 20 mg Tablet,Delayed Release (Dr/Ec) 10 mg PO DAILY PRN (Reason: Acid Reflux) Vitamin D3 25 mcg (1,000 unit) Tablet 3,000 unit PO DAILY furosemide 40 mg tablet 40 mg PO DAILY PRN (Reason: Edema) Xarelto 20 mg tablet 20 mg PO BEDTIME alogliptin 25 mg tablet 25 mg PO QAM metoprolol tartrate 50 mg tablet 50 mg PO BID Qty: 60 0RF Changed digoxin 125 mcg (0.125 mg) tablet 250 mcg PO DAILY 30 Days Qty: 60 0RF Discontinued benazepril 5 mg Tablet 5 mg PO QAM aspirin 325 mg tablet 650 mg PO .EVERY 2 WEEKS Discharge Orders: Discharge Order (Routine); Ordered 05/08/23 Ordered By: Renzo Frias Referrals: Mariola Ballesteros MD [Primary Care Provider] - 2 weeks (Please call Dr. Ballesteros's Office on Wednesday or Wednesday at [phone] to schedule a follow up appointment for 2 weeks. Thank you.) Discharge Diet: Cardiac Discharge Activity: Resume usual activity and Increase activity as tolerated Patient Instructions: Furosemide (By mouth) (Lasix), Sucralfate (By mouth) (Carafate), Fluticasone (By breathing) (Arnuity Ellipta, Flovent Diskus,..., Pantoprazole (By mouth) (Protonix), Heart Failure (DC), A-fib (Atrial Fibrillation) (DC), CHF Stoplight, GI Discharge Instructions, Opioid Safety Activity Restrictions/Additional Instructions: Repeat CBC, BMP and digoxin level in 2 weeks. The Take Protonix twice daily for next 4 weeks followed by once daily. Take Carafate 3 times a day for the next 4 weeks. Do not take aspirin as before. Continue taking Xarelto as before. Dose of digoxin has been increased to 250 mcg daily. Take Lasix 20 mg daily. Please continue taking medications as prescribed. Discharge Attestations Time Spent in Discharge Care*: greater than 30 min Specific Discharge Activities: educating patient, educating and/or supporting family/caregiver, discussing with pcp/other providers, discussing with director of casework department/social workers/dc planners, documenting/other paperwork and evaluating patient/reviewing data Status at Discharge: Cognitive status at discharge: cognitively intact , Behavioral status at discharge: cooperative , Functional status at discharge: independent ambulation , Overall status at discharge: patient is back to baseline Quality Metrics Clinical Quality Measures [ No reported AMI, CVA or VTE this stay] Coding Level of Care Code 95352 Total time (in minutes) for Discharge: 60 Diagnoses Atrial fibrillation with RVR I48.91 Anemia D64.9 Non-ischemic cardiomyopathy I42.8 Congestive heart failure with cardiomyopathy I50.9; I42.9 COPD (chronic obstructive pulmonary disease) J43.1 COPD type: emphysema Emphysema type: panlobular Abdominal aneurysm without mention of rupture I71.4 Benign essential HTN I10 Serum digoxin level below therapeutic range R78.89 Duodenal ulcer K26.9 Varices of esophagus determined by endoscopy I85.00
[2023-05-08 17:06] LABS: Glucose Point of Care 154 mg/dL (70-110)
[2023-05-08] MEDS: atorvastatin 40 mg Tablet PO (17:32)
== END 2023-05-08 18:14 | disposition home or self-care (01) | DRG 309 ==
LOC: ER 13:23 → CSU 14:58
PROVIDERS: Surgery; Admitting Provider Student in an Organized Health Care Education/Training Program; Emergency Provider Emergency Medicine; PCP Family Medicine; Visit Provider Student in an Organized Health Care Education/Training Program
PROC: 0DJ08ZZ Inspection of Upper Intestinal Tract, Via Natural or Artificial Opening Endoscopic (ICD-10-PCS; CPT 43235; principal; 2023-05-07 09:00)
PROC: 0DJD8ZZ Inspection of Lower Intestinal Tract, Via Natural or Artificial Opening Endoscopic (ICD-10-PCS; CPT 45378; 2023-05-07 09:00)
DX: I48.20 Chronic atrial fibrillation, unspecified (principal); I85.00 Esophageal varices without bleeding; Z79.01 Long term (current) use of anticoagulants; I11.0 Hypertensive heart disease with heart failure; I50.9 Heart failure, unspecified; I42.8 Other cardiomyopathies; E11.9 Type 2 diabetes mellitus without complications; Z79.84 Long term (current) use of oral hypoglycemic drugs; E78.5 Hyperlipidemia, unspecified; I71.40 Abdominal aortic aneurysm, without rupture, unspecified; Z87.891 Personal history of nicotine dependence; Z91.148 Patient's other noncompliance with medication regimen for other reason; Z79.82 Long term (current) use of aspirin; D64.9 Anemia, unspecified; I78.1 Nevus, non-neoplastic; J43.1 Panlobular emphysema; K57.30 Diverticulosis of large intestine without perforation or abscess without bleeding; K26.9 Duodenal ulcer, unspecified as acute or chronic, without hemorrhage or perforation; D12.2 Benign neoplasm of ascending colon; D12.3 Benign neoplasm of transverse colon
CPT/HCPCS: 36415; 36416; 36430; 43239; 45385; 70450; 71045; 80053; 80061; 80162; 81001; 82274; 82607; 82746; 82962; 83036; 83540; 83550; 83735; 83880; 84100; 84443; 84484; 85025; 85610; 86850; 86900; 86920; 87070; 87205; 88305; 88342; 93005; 93306; 93978; 94640; 94664; 96365; 96366; 96372; 96376; 99285; C9113; J1160; J1815; J2704; J3490; J7030; J7614; P9040

== ENCOUNTER 2023-05-17 10:49 | Emergency (ER) | payer OTHER, SELFPAY ==
[2023-05-17 10:56] VITALS: BP 114/59; PULSE 73; RESP 18; TEMP 36.6; O2SAT 99; BMI 31.1
[2023-05-17 12:48] LABS: Basophils # 0.1 10^3/uL (0.0-0.1); Basophils % 0.8 %; Eosinophils # 0.1 10^3/uL (0.0-0.8); Eosinophils % 1.4 %; Hematocrit 27.8 % (42.0-52.0); Lymphocytes # 1.6 10^3/uL (0.8-4.8); Lymphocytes % 17.2 %; Mean Corpuscular HGB Conc 28.8 g/dL (30.0-36.0); Mean Corpuscular Hemoglobin 22.7 pg (28.0-34.0); Mean Corpuscular Volume 78.8 fl (80-94); Mean Platelet Volume 9.1 fL (7.4-10.4); Monocytes # 0.6 10^3/uL (0.2-0.9); Monocytes % 6.8 %; Neutrophils % 73.2 %; Nucleated Red Blood Cells % 0 %; Platelet Count 348 10^3/cmm (130-400); Red Blood Count 3.53 10^6/uL (4.1-5.3); Red Cell Distribution Width 19.6 % (12.1-15.1); White Blood Count 9.4 10^3/uL (4.0-10.0)
[2023-05-17 13:06] LABS: Add RBC Morph Yes; Giant Platelets Trace; Hypochromasia 2+; RBC Morph Comp No; Slide Review Slide Review Perform
[2023-05-17 13:07] LABS: Anisocytosis 1+; INR 1.78 (0.8-1.2); Ovalocytes 1+; Poikilocytosis 1+; Target Cells Trace
[2023-05-17 13:11] LABS: Alanine Aminotransferase 27 U/L (0-41); Albumin Level 2.7 g/dL (3.5-5.2); Alkaline Phosphatase 157 U/L (40-130); Anion Gap 13.9 (5-19); Aspartate Amino Transferase 22 U/L (0-40); Blood Urea Nitrogen 10 mg/dL (8-23); Calcium 8.2 mg/dL (8.5-10.5); Carbon Dioxide 29 mmol/L (22-29); Chloride 97 mmol/L (98-107); Creatinine Clr Calc Pharmacy 91.9692; Globulin 3.8 g/dL (1.3-4.6); Glucose 141 mg/dL (65-115); Osmolality Calculated 285 mOsm/kg (285-295); Sodium 137 mmol/L (136-145); Total Bilirubin 0.4 mg/dL (0.15-1.2); Total Protein 6.5 g/dL (6.6-8.7)
[2023-05-17 13:17] LABS: Potassium 2.9 mmol/L (3.5-5.1)
--- NOTE | 2023-05-17 13:28 | ED_ITS ---
HPI - GI Bleed General: Chief complaint: GI Bleed Stated complaint: blood in stool Time Seen by Provider: 05/17/23 13:18 History of Present Illness: Presents to the ER with complaints of blood in his stool and urinating blood x1. Patient said these both happened today. Patient is on Xarelto. Patient was released from the hospital approximately 1 week ago. Patient was admitted for A-fib with RVR, he is on Xarelto for anticoagulation, he did have blood in his stool then. To the point of requiring 2 units of blood. Patient did undergo an upper and lower endoscopy at that time. Lower endoscopy was negative other than polyps which were biopsied., Upper endoscopy showed duodenal ulcer nonbleeding esophageal varices. Patient was discharged on multiple medicines for his duo denal ulcer. Review of Systems General: Reports: 10 or more systems reviewed and unremarkable except in HPI and below PFSH ED PFSH: Medical History Abdominal aneurysm without mention of rupture Benign essential HTN Chronic atrial fibrillation Coreg Chronic episodic atrial fibrillation Congestive heart failure with cardiomyopathy COPD (chronic obstructive pulmonary disease) Diabetes mellitus, type II Dyslipidemia Hyperlipidemia Hypertension Non-ischemic cardiomyopathy Varices of esophagus determined by endoscopy Surgical History History of tonsillectomy Family History Other CAD (coronary artery disease) CHF (congestive heart failure) Cancer Social History Smoking and tobacco status: former smoker Alcohol intake: never Substance/Drug Use: never Caregiver/support person: Yes Lives independently: Yes Household members: spouse and children Marital status: Physical Exam Const: COMMON NORMALS: no acute distress, average body habitus, patient oriented x3, no limitations, healthy appearing, alert and well nourished HENMT: COMMON NORMALS: normocephalic, hearing grossly normal bilaterally, external ears normal, Normal external nose present and moist oral mucous membranes HEAD & SCALP: normocephalic NOSE: Normal external nose present EXTERNAL EAR: Yes external ears normal Neck/C-Spine: COMMON NORMALS: full ROM, no lymphadenopathy, supple, no meningeal signs, no JVD and Thyroid normal THYROID: Thyroid normal Chest: COMMONS NORMALS: normal inspection of the chest and normal palpation of entire chest wall Resp: COMMON NORMALS: normal respiratory effort, No retractions, No use of accessory muscles and clear to auscultation bilaterally AUSCULTATION: clear to auscultation bilaterally Cardio: COMMON NORMALS: no JVD, regular rate, regular rhythm, S1 normal heart sound present, S2 normal heart sound present, No gallops present (Cardio), No clicks present (Cardio), No murmurs present (Cardio) and No rub (Cardio) RATE: regular rate RHYTHM: regular rhythm HEART SOUNDS: S1 normal heart sound present and S2 normal heart sound present GI: COMMON NORMALS: Normal to inspection, nondistended, normoactive bowel sounds present, Soft to palpation, non-tender, No hepatosplenomegaly present and no masses PALPATION: Yes Soft to palpation and Yes No hepatosplenomegaly present : COMMON NORMALS: Yes no CVA tenderness BLADDER/KIDNEY EXAM: Yes no CVA tenderness Back/Pelvis: COMMON NORMALS: no CVA tenderness Neuro: COMMON NORMALS: patient oriented x3 SENSORIUM/ORIENTATION: Yes alert MENINGEAL SIGNS: Yes no meningeal signs Course Vital Signs: Vital signs: Vital Signs Temperature 97.9 F 05/17/23 10:56 Pulse Rate 88 05/17/23 14:02 Respiratory Rate 18 05/17/23 10:56 Blood Pressure 109/58 05/17/23 14:02 Pulse Oximetry 99 05/17/23 10:56 Oxygen Delivery Me thod Room Air 05/17/23 10:56 MDM - GI Bleed Medical Decision Making Patient presents to the ER with complaints of bright red blood per rectum and also hematuria. Patient was just discharged from the hospital and had a similar episode of this. Patient was scoped up top and down below. Patient hemoglobin is stable and only slightly lower. Patient did have hematuria on record. Patient's potassium is low at 2.9. Patient was given 40 mg equivalents potassium p.o. and will be written for Carafate and potassium to get through the pharmacy here on their care plan. Patient will be discharged home to follow-up with his PCP for further evaluation and treatment. Differential Diagnosis Likely Lower gastrointestinal hemorrhage; Unlikely hemorrhoids, infectious diarrhea, esophageal varices, gastritis, Brianne-Go syndrome, Upper gastrointestinal hemorrhage, hematochezia, melena or anal fissure Medical Records I reviewed the patient's medical records. Lab Data I reviewed the patient's lab results. 05/17/23 12:40 05/17/23 12:40 Laboratory Results WBC 9.4 10^3/uL (4.0-10.0) 05/17/23 12:40 RBC 3.53 10^6/uL (4.1-5.3) L 05/17/23 12:40 Hgb 8.0 g/dL (11.7-16.6) L 05/17/23 12:40 Hct 27.8 % (42.0-52.0) L 05/17/23 12:40 MCV 78.8 fl (80-94) L 05/17/23 12:40 MCH 22.7 pg (28.0-34.0) L 05/17/23 12:40 MCHC 28.8 g/dL (30.0-36.0) L 05/17/23 12:40 RDW 19.6 % (12.1-15.1) H 05/17/23 12:40 Plt Count 348 10^3/cmm (130-400) 05/17/23 12:40 MPV 9.1 fL (7.4-10.4) 05/17/23 12:40 Neut % (Auto) 73.2 % 05/17/23 12:40 Lymph % (Auto) 17.2 % 05/17/23 12:40 [place] % (Auto) 6.8 % 05/17/23 12:40 Eos % (Auto) 1.4 % 05/17/23 12:40 Baso % (Auto) 0.8 % 05/17/23 12:40 Neut # (Auto) 6.90 10^3/uL (1.8-7.7) 05/17/23 12:40 Lymph # (Auto) 1.6 10^3/uL (0.8-4.8) 05/17/23 12:40 [place] # (Auto) 0.6 10^3/uL (0.2-0.9) 05/17/23 12:40 Eos # (Auto) 0.1 10^3/uL (0.0-0.8) 05/17/23 12:40 Baso # (Auto) 0.1 10^3/uL (0.0-0.1) 05/17/23 12:40 Nucleated RBC % (auto) 0 % 05/17/23 12:40 Nucleated RBCs # 0.0 /100WBC 05/17/23 12:40 Giant Platelets Trace 05/17/23 12:40 Hypochromasia 2+ H 05/17/23 12:40 Poikilocytosis 1+ H 05/17/23 12:40 Anisocytosis 1+ H 05/17/23 12:40 Target Cells Trace 05/17/23 12:40 Ovalocytes 1+ H 05/17/23 12:40 PT 21.30 SECONDS (12.1-14.9) H 05/17/23 12:40 INR 1.78 (0.8-1.2) H 05/17/23 12:40 Sodium 137 mmol/L (136-145) 05/17/23 12:40 Potassium 2.9 mmol/L (3.5-5.1) L 05/17/23 12:40 Chloride 97 mmol/L (98-107) L 05/17/23 12:40 Carbon Dioxide 29 mmol/L (22-29) 05/17/23 12:40 Anion Gap 13.9 (5-19) 05/17/23 12:40 BUN 10 mg/dL (8-23) 05/17/23 12:40 Creatinine 0.7 mg/dL (0.7-1.2) 05/17/23 12:40 GFR Calculation Not Reportable 05/17/23 12:40 Glucose 141 mg/dL (65-115) H 05/17/23 12:40 Calculated Osmolality 285 mOsm/kg (285-295) 05/17/23 12:40 Calcium 8.2 mg/dL (8.5-10.5) L 05/17/23 12:40 Magnesium 1.9 mg/dL (1.7-2.3) 05/17/23 12:40 Total Bilirubin 0.4 mg/dL (0.15-1.2) 05/17/23 12:40 AST 22 U/L (0-40) 05/17/23 12:40 ALT 27 U/L (0-41) 05/17/23 12:40 Alkaline Phosphatase 157 U/L (40-130) H 05/17/23 12:40 Total Protein 6.5 g/dL (6.6-8.7) L 05/17/23 12:40 Albumin 2.7 g/dL (3.5-5.2) L 05/17/23 12:40 Globulin 3.8 g/dL (1.3-4.6) 05/17/23 12:40 Urine Color Dark yellow (Yellow) 05/17/23 14:14 Urine Appearance Clear (CLEAR) 05/17/23 14:14 Urine pH 5 (5-7) 05/17/23 14:14 Ur Specific [place] 1.010 (1.005-1.030) 05/17/23 14:14 Urine Protein Neg (Negative) 05/17/23 14:14 Urine Glucose (UA) Norm (Normal) 05/17/23 14:14 Urine Ketones Negative (Negative) 05/17/23 14:14 Urine Blood 3+ (Negative) H 05/17/23 14:14 Urine Nitrate Negative (Negative) 05/17/23 14:14 Urine Bilirubin Neg (Negative) 05/17/23 14:14 Urine Urobilinogen Norm mg/dL (Negative) 05/17/23 14:14 Ur Leukocyte Esterase Negative (Negative) 05/17/23 14:14 Urine RBC 5-10 /hpf (0-2) H 05/17/23 14:14 Urine WBC Rare /hpf (0-5) 05/17/23 14:14 Ur Squamous Epith Cells None /hpf (0-5) 05/17/23 14:14 Amorphous Sediment Not Reportable 05/17/23 14:14 Urine Bacteria Trace /hpf (NONE) 05/17/23 14:14 Discharge Plan Discharge Patient Disposition: Home Clinical Impression: Hematochezia, Duodenal ulcer, Acute hypokalemia, Anticoagulation adequate Hematuria Qualifiers: Hematuria type: unspecified type Qualified Code(s): R31.9 - Hematuria, unspecified Condition: Stable Prescriptions: New potassium chloride 20 mEq tablet extended release 20 meq PO BID Qty: 14 0RF sucralfate [Carafate] 100 mg/mL suspension 1 g PO TID Qty: 840 0RF No Action metformin 500 mg Tablet 500 mg PO BID 30 Days Qty: 60 0RF loratadine [Claritin] 10 mg Tablet 10 mg PO DAILY PRN (Reason: Allergy Symptoms) rosuvastatin [Crestor] 20 mg Tablet 10 mg PO QPM omeprazole magnesium [Prilosec OTC] 20 mg Tablet,Delayed Release (Dr/Ec) 10 mg PO DAILY PRN (Reason: Acid Reflux) cholecalciferol (vitamin D3) [Vitamin D3] 25 mcg (1,000 unit) Tablet 3,000 unit PO DAILY furosemide 40 mg tablet 40 mg PO DAILY PRN (Reason: Edema) Xarelto 20 mg tablet 20 mg PO BEDTIME alogliptin 25 mg tablet 25 mg PO QAM sucralfate [Carafate] 100 mg/mL suspension 1 g PO TID 28 Days Qty: 840 0RF Rx Instructions: pt didnt get as of 05/17/23 not covered by insurance furosemide [Lasix] 20 mg tablet 20 mg PO DAILY Qty: 30 0RF metoprolol tartrate 50 mg tablet 50 mg PO BID Qty: 60 0RF fluticasone furoate-vilanterol [Breo Ellipta] 100-25 mcg/dose blister with device 1 inh inhalation DAILY Qty: 60 0RF Protonix 40 mg tablet,delayed release (DR/EC) See Rx Instructions .ROUTE .COMPLEX Rx Instructions: 40mg po twice a day for next 4 weeks then followed by once daily digoxin 125 mcg (0.125 mg) tablet 250 mcg PO QAM Discharge Orders: Discharge ED (Routine); Ordered 05/17/23 Ordered By: Homar Armstrong Referrals: Mariola Ballesteros MD [Primary Care Provider] - 1 week Patient Instructions: Hematuria - Male, Hypokalemia, Rectal Bleeding (ED) Activity Restrictions/Additional Instructions: Please fill your prescriptions to the hospital pharmacy is care plan. Please take all medicine as directed. Please follow-up with your family doctor in the next 7 to 10 days for further evaluation and treatment. Coding Level of Care Code ED [employer] Winder for Ortiz García
[2023-05-17 13:37] LABS: Magnesium 1.9 mg/dL (1.7-2.3)
[2023-05-17] MEDS: potassium chloride ER 20 mEq Tablet 40 MEQ PO (13:47)
[2023-05-17 14:02] VITALS: BP 109/58; PULSE 88
[2023-05-17 14:46] LABS: Bilirubin Urine Neg (Negative); Glucose Urine UA Norm (Normal); Ketones Urine Negative (Negative); Leukocyte Esterase Urine Negative (Negative); Nitrate Urine Negative (Negative); Protein Urine Neg (Negative); Urine Appearance Clear (CLEAR); Urine Color Dark Yellow (Yellow); Urobilinogen Urine Norm (Negative); pH Urine 5 (5-7)
[2023-05-17 14:57] LABS: Add Urine Microscopic? YES; Blood Urine 3+ (Negative)
[2023-05-17 14:58] LABS: Add Urine Culture? No; Bacteria Urine TRACE /hpf; WBC Urine RARE /hpf (0-5)
== END 2023-05-17 16:59 | disposition home or self-care (01) ==
PROVIDERS: Emergency Provider Emergency Medicine; PCP Family Medicine
DX: K26.9 Duodenal ulcer, unspecified as acute or chronic, without hemorrhage or perforation (principal); E87.6 Hypokalemia; K92.1 Melena; I48.20 Chronic atrial fibrillation, unspecified; I11.0 Hypertensive heart disease with heart failure; I50.9 Heart failure, unspecified; E11.9 Type 2 diabetes mellitus without complications; E78.5 Hyperlipidemia, unspecified; I42.8 Other cardiomyopathies; J44.9 Chronic obstructive pulmonary disease, unspecified; Z79.01 Long term (current) use of anticoagulants; Z79.84 Long term (current) use of oral hypoglycemic drugs; Z79.899 Other long term (current) drug therapy; Z87.891 Personal history of nicotine dependence
CPT/HCPCS: 36415; 80053; 81001; 83735; 85025; 85610; 99283